=== PATIENT | female | born 1975 | race Caucasian/White ===

== ENCOUNTER 2020-04-23 08:34 | Emergency (ER) | payer OTHER, SELFPAY ==
--- NOTE | ~2020-04-23 | US_ITS ---
US right upper quadrant DATE: 04/23/2020 09:52 INDICATION: Right upper quadrant abdominal pain TECHNIQUE: Real-time imaging of liver, pancreas, gallbladder, Doppler evaluation. COMPARISON: None FINDINGS: No hepatic or pancreatic space-occupying mass lesion is evident. Normal hepatopedal portal venous flow direction. The common bile duct measures between 3.3 and 7.1 mm diameter. There is borderline thickening of the gallbladder. No gallstones are demonstrated, but the neck of th e gallbladder is not completely visualized due to interference from bowel gas. The technologist repor ts a negative sonographic Dolan's sign.. IMPRESSION: Borderline thickening of the gallbladder wall; incomplete visualization of the gallbladde r neck Consider radionuclide hepatobiliary scan if there is concern for acute cholecystitis Borderline or mildly increased diameter of the common bile duct, measuring up to 7.1 mm. Reviewed, dictated and finalized at [facility]. Reviewed, dictated and finalized at location [facility]. IMPRESSION: Borderline thickening of the gallbladder wall; incomplete visualiza tion of the gallbladder neck Consider radionuclide hepatobiliary scan if there is concern for acute cholecys titis Borderline or mildly increased diameter of the common bile duct, measuring up t o 7.1 mm.
--- NOTE | 2020-04-23 08:44 | ED.ABDPAIN ---
HPI - Abdominal Pain General Chief Complaint: Abdominal Pain Stated Complaint: abd pain Time Seen by Provider: 04/23/20 08:52 Source: patient Mode of arrival: ambulatory Limitations: no limitations History of Present Illness HPI narrative: 44-year-old woman with history of gallstones comes in today complaining of right upper quadrant pain that started 2 days ago. Patient got worse symptoms after eating. This morning she began to have vomiting. She states she had a small amount of blood in her stool yesterday. She states she also has urinary frequency and urgency and occasional incontinence. She denies seeing argenis blood in her urine, Black stools, bloody or black vomitus, skin color changes, fever, chills. MD elicited complaint: abdominal pain Pertinent past history: other (gallstones) Onset (ago): day(s) (2) Pain Consistency: constant Location: RUQ Severity: severe Quality: sharp Radiation: none Migration to: no migration Exacerbating factors: eating Relieving factors: nothing Context: confirms history of similar episodes Associated symptoms: nausea, vomiting and diarrhea Related Data Patient : No Home Medications Medication Instructions Recorded Confirmed gabapentin 300 mg PO TID 09/04/19 04/23/20 Allergies Allergy/AdvReac Type Severity Reaction Status Date / Time cyclobenzaprine Allergy Hives Verified 09/04/19 13:49 [From Flexeril] Review of Systems Constitutional: Constitutional: Denies chills, Denies fever(s) and Denies weakness Eyes: Eyes: Denies change in vision ENT: Denies dysphagia, Denies nasal congestion and Denies sore throat Cardiovascular: Cardiovascular: Denies chest pain and Denies radiating jaw, neck or arm pain Respiratory: Respiratory: Denies cough and Denies dyspnea Gastrointestinal: Gastrointestinal: Reports as per HPI Genitourinary: Genitourinary: Denies hematuria, Reports nocturia (and urgency), Denies dysuria and Reports urinary incontinence Musculoskeletal: Musculoskeletal: Denies arthralgias and Denies joint swelling Integumentary/Breasts: Skin/Breast: Denies pruritus, Denies erythema and Denies rash Neurologic: Denies vertigo, Denies dizziness, Denies syncope, Denies focal weakness and Denies numbness Hematologic/Lymphatic: Hematologic/Lymphatic: Denies easy bleeding and Denies easy bruising Allergic/Immunologic: Allergic/Immunologic: Denies lip swelling and Denies wheezing PMFSH Past Medical History Medical History Asthma Fibromyalgia Surgical History Surgical History H/O: hysterectomy Social History Social History Smoking status: Current every day smoker Alcohol intake: never Substance use: current Substance use type: marijuana Exam Const: General: healthy appearing and alert Orientation/consciousness: patient oriented x3 Limitations: no limitations Other: Moderate acute distress. HENMT: Head: normal to inspection Ears: external ears normal, TM's normal bilaterally and EAC's normal General nose exam: Normal nares present Face and sinus: normal facial exam Mouth: Yes moist mucous membranes Throat: posterior oropharynx normal and uvula midline Eyes: Conjunctivae: conjunctivae normal Pupils: Equal, round and reactive pupils present EOM: EOMs intact bilaterally Resp: Effort & Inspection: normal respiratory effort and not labored Auscultation: clear to auscultation bilaterally, no rales, no rhonchi and no wheezes Cardio: Rate: regular rate Rhythm: regular rhythm Heart sounds: no murmurs GI: GI Palp: Yes Soft to palpation, Yes Tenderness to palpation present (GI) (RUQ, No definite +Dolan's sign), No Guarding due to palpation present (GI), No Rigid due to palpation and No Palpable mass present Other: Liver edge palpable 3 cm below costal margin. Skin: Gene
[2020-04-23 08:45] VITALS: BP 128/89; PULSE 66; RESP 20; TEMP 36.8; O2SAT 97
--- NOTE | 2020-04-23 08:59 | ECG_ITS ---
Measurements Intervals [place] Rate: 59 P: 77 W[place]: 131 QRS: 72 QRSD: 106 T: 53 QT: 435 QTc: 432 Interpretive Statements SINUS BRADYCARDIA INCOMPLETE RIGHT BUNDLE BRANCH BLOCK BORDERLINE ECG Electronically Signed On 04-23-2020 11:10:38 CDT by James Borja D.O.
[2020-04-23] MEDS: SODIUM CHLORIDE 0.9% IV 1,000 ML 999 ML IV CONT (09:05)
[2020-04-23] MEDS: HYDROmorphone HCL 2 MG/ML VIAL 0.5 MG IV PUSH ×2 (09:05→11:09)
[2020-04-23] MEDS: ONDANSETRON INJ 4 MG/2 ML VIAL IV PUSH (09:06)
[2020-04-23 09:15] LABS: Basophils Absolute Auto 0.09 K/mm3 (0.00-0.10); Basophils Percent Auto 0.7 % (0.0-1.0); Eosinophils Absolute Auto 0.09 K/mm3 (0.02-0.50); Eosinophils Percent Auto 0.7 % (1.0-6.0); Hematocrit 37.3 % (35.0-49.0); Immature Granulocyte Absolute 0.04 K/mm3 (0.00-0.00); Immature Granulocyte Percent A 0.3 % (0.0-0.0); Lymphocytes Absolute Auto 2.75 K/mm3 (1.10-4.50); Lymphocytes Percent Auto 20.4 % (18.0-42.0); Mean Corpuscular HGB Conc 34.9 g/dL (32.0-36.0); Mean Corpuscular Hemoglobin 32.3 pg (27.0-31.0); Mean Corpuscular Volume 92.6 fL (78.0-102.0); Mean Platelet Volume 9.8 fl (9.2-11.8); Monocytes Absolute Auto 1.16 K/mm3 (0.10-0.90); Monocytes Percent Auto 8.6 % (2.0-11.0); Neutrophils Absolute Auto 9.3 K/mm3 (1.7-7.2); Neutrophils Percent Auto 69.3 % (50.0-70.0); Platelet Count Result 271 K/mm3 (150-420); Red Blood Count 4.03 M/mm3 (4.20-5.40); Red Cell Distribution Width 12.8 % (11.6-14.4); White Blood Count 13.5 K/mm3 (4.8-10.8)
[2020-04-23 09:29] LABS: Partial Thromboplastin Time 28.7 SEC (22.3-31.6); Prothrombin Time 10.5 Seconds (9.64-11.0)
[2020-04-23 09:31] LABS: Add Urine Microscopic? YES; Appearance Urine Clear (Clear); Bilirubin Urine Negative (Negative); Blood Urine Negative (Negative); Color Urine Yellow (Yellow); Glucose Urine UA Negative (Negative); Ketones Urine Negative (Negative); Leukocyte Esterase Ur Negative LEU/UL (Negative); Nitrate Urine Positive (Negative); Protein Urine Negative (Negative); Specific Grav Ur >= 1.030 (1.010-1.020); Urobilinogen Urine 0.2 mg/dL (0.2-1.0)
[2020-04-23 09:37] LABS: Bacteria Urine 4+ /hpf; RBC Urine 0-2 /hpf (0-2); Squamous Epithelial Cell Urine Few /hpf (Few); WBC Urine 0-3 /hpf (0-3)
[2020-04-23 09:49] LABS: Alanine Aminotransferase 16 U/L (14-59); Albumin Level 3.3 g/dL (3.4-5.0); Alkaline Phosphatase 75 U/L (46-116); Anion Gap 12.5 mmol/L (7-16); Aspartate Amino Transferase 15 U/L (15-37); Bilirubin,Total 0.2 mg/dL (0.00-1.00); Blood Urea Nitrogen 12 mg/dL (7-18); Calcium 8.1 mg/dL (8.5-10.1); Carbon Dioxide 27 mmol/L (21-32); Chloride 105 mmol/L (98-108); Estimated CRCL calculation 72 ml/min; Estimated Glomerular Filt Rate > 60; Glucose 97 mg/dL (70-99); Lipase 111 U/L (73-393); Osmolality Calculated 291 mOsm/kg (285-295); Potassium 3.5 mmol/L (3.5-5.1); Sodium 141 mmol/L (136-145); Total Protein 6.4 g/dL (6.4-8.2); Troponin I < 0.02 ng/mL (0.00-0.056)
--- NOTE | 2020-04-23 09:49 | PC.NURSE ---
0965 PT TO XRAY FOR ULTRASOUND, 0950 RETURN TO ROOM.
--- NOTE | 2020-04-23 10:19 | PC.NURSE ---
call to [facility], spoke with Marilee, waiting for return call from surgery partition assembler.
--- NOTE | 2020-04-23 11:10 | PC.NURSE ---
call from dr wooten office, appt for sunday at 230 pm to arrive at 2 pm for paper work. information regarding appointment given to dr arora
--- NOTE | 2020-04-23 11:23 | PC.NURSE ---
pt updated on plan of care regarding medication and appointment. possible transfer if not responding to pain medication per dr arora. Report to SCOTT Antonio.
[2020-04-23 11:45] VITALS: BP 127/84; PULSE 56; RESP 16; O2SAT 99
== END 2020-04-23 11:49 | disposition home or self-care (01) ==
PROVIDERS: Emergency Provider Emergency Medicine; PCP Family Medicine
DX: K80.50 Calculus of bile duct without cholangitis or cholecystitis without obstruction (principal)
CPT/HCPCS: 36415; 76705; 80053; 81001; 83605; 83690; 84484; 85025; 85610; 85730; 87077; 87086; 87088; 87186; 93005; 96361; 96374; 96375; 96376; 99284; J1170; J2405; J7030

== ENCOUNTER 2020-04-24 12:48 | Emergency (ER) | payer OTHER, SELFPAY ==
--- NOTE | ~2020-04-24 | CT_ITS ---
EXAMINATION: CT abdomen pelvis w con EXAM DATE: 04/24/2020 14:55 INDICATION: Right upper quadrant pain, symptoms one year. TECHNIQUE: Spiral CT of the abdomen and pelvis was performed following intravenous injection of 100 m L Omnipaque 350. Axial, coronal and sagittal images were reviewed. The dose-length product (DLP) fo r this examination was 222.75 mGy-cm. The exposure was tailored according to patient size (auto mA e xposure control), and iterative reconstruction (ASIR) was used as additional dose reduction technique . There is no prior study for comparison. FINDINGS: The liver, spleen, adrenal glands and pancreas are unremarkable. Gallbladder is unremarkab le. No biliary obstruction. Portal and splenic veins are patent. Kidneys enhance symmetrically. T here is no hydronephrosis. 2 small left renal cysts. Small region of left renal cortical scarring fro m prior infection or infarction. The uterus is not identified and has likely been surgically resecte d. Small amount of free pelvic fluid. The bladder is unremarkable. There is no retroperitoneal or p elvic lymphadenopathy. There is mild to moderate scattered arteriosclerotic disease. The appendix is not positively visualized. There is no pericecal inflammatory change to suggest appe ndicitis. The stomach and small bowel are unremarkable. There is moderate amount of colonic stool. No free intraperitoneal gas. The heart is normal in size. There are no pericardial or pleural e ffusions. The lung bases are unremarkable. The bones are unremarkable. IMPRESSION: 1. No acute intra-abdominal findings. 2. Small region left renal cortical scarring. 3. Small free pelvic fluid likely physiologic. Reviewed, dictated and finalized at location A.
[2020-04-24 13:27] VITALS: BP 135/87; PULSE 81; RESP 14; TEMP 37.1; O2SAT 98
--- NOTE | 2020-04-24 14:02 | ED.ABDPAIN ---
HPI - Abdominal Pain General Chief Complaint: Abdominal Pain Stated Complaint: lower RQ pain Source: patient Mode of arrival: ambulatory Limitations: no limitations History of Present Illness HPI narrative: This 44-year-old female with fibromyalgia presents stating I am tired of having this pain. I want to get my gallbladder out . She has has had problems with right upper quadrant pain off and on for over a year. For the last 3 days the pain has been severe and sharp. Eating food, or moving makes it worse. The pain is associated with nausea. She vomited once in the last 24 hours, and also had one diarrhea stool. It is non-radiating, not associated with fevers or chills. She was evaluated at [facility] yesterday morning. CBC showed a white count of 13.5, her liver function tests were all normal. Her ultrasound showed borderline thickening of the gallbladder wall; incomplete visualization of the gallbladder neck.Borderline or mildly increased diameter of the common bile duct, measuring up to 7.1 mm. Consider radionuclide hepatobiliary scan if there is concern for acute cholecystitis . Dr. Richey had accepted her for transfer to [facility] but she decided to go home, thinking she could endure the pain through the weekend and see Dr. Richey in the office on Sunday, 04/27. But the pain was not controlled at home with [place], bringing her back to the hospital. She demands transfer to [facility]. She states she has been seen multiple times at [facility] over this past year, has been passed around, with nobody taking her pain seriously. Urinalysis was positive yesterday for nitrate and 4+ bacteria, scant wbc's. She denies dysuria. Pt was not told she had a UTI. Related Data Home Medications Medication Instructions Recorded Confirmed gabapentin 300 mg PO TID 09/04/19 04/24/20 Allergies Allergy/AdvReac Type Severity Reaction Status Date / Time cyclobenzaprine Allergy Hives Verified 09/04/19 13:49 [From Flexeril] Review of Systems Constitutional: Constitutional: Denies fever(s) Cardiovascular: Cardiovascular: Denies chest pain Respiratory: Respiratory: Denies dyspnea Gastrointestinal: Gastrointestinal: Reports no additional gastrointestinal complaints Genitourinary: Genitourinary: Reports nocturia (chronic) and Denies dysuria Psychiatric: Psychiatric: Denies anxiety and Denies depression [facility] Past Medical History Medical History (Updated 04/25/20 @ 08:28 by Jose Cruz Griffin MD) Asthma Fibromyalgia Surgical History Surgical History H/O: hysterectomy Family History Family History Father Cerebrovascular accident Social History Social History Smoking status: Current every day smoker Alcohol intake: never Substance use: current Substance use type: marijuana Gender identity (if verbalized by the patient): Female Exam Const: Orientation/consciousness: patient oriented x3 Other: Anxious, frustrated I am asking her the same questions asked yesterday when nothing has changed. Course Course Emergency Course: When obtaining the history the patient became very annoyed with me stating, to paraphrase, nothing has changed since yesterday, just look at the chart. At times she became agitated stating I didn't care about her. She told me repeatedly I had no idea what she was going through. When patient was told her CT scan of the abdomen was negative for acute cholecystitis she became agitated and started yelling, pointing her finger repeatedly at me, saying I didn't know what it's like to be vomiting, sick for a year. I explained I know she's having pain. The lab tests do not show evidence of cholecystitis. No surgeon would take her gallbladder acutely based on the results of her CT scan. She refused a g.i. cocktail. Pt states she has had th
[2020-04-24] MEDS: HYDROmorphone HCL 2 MG/ML VIAL IV PUSH (14:13)
[2020-04-24] MEDS: ONDANSETRON INJ 4 MG/2 ML VIAL IV PUSH (14:13)
[2020-04-24] MEDS: LACTATED RINGERS 1,000 ML 500 ML IV CONT (14:13)
[2020-04-24 14:15] LABS: Basophils Absolute Auto 0.07 K/mm3 (0.00-0.10); Basophils Percent Auto 0.6 % (0.0-1.0); Eosinophils Absolute Auto 0.14 K/mm3 (0.02-0.50); Eosinophils Percent Auto 1.1 % (1.0-6.0); Hematocrit 36.4 % (35.0-49.0); Hemoglobin 12.7 g/dL (12.0-15.0); Immature Granulocyte Absolute 0.07 K/mm3 (0.00-0.00); Immature Granulocyte Percent A 0.6 % (0.0-0.0); Lymphocytes Absolute Auto 1.92 K/mm3 (1.10-4.50); Lymphocytes Percent Auto 15.5 % (18.0-42.0); Mean Corpuscular HGB Conc 34.9 g/dL (32.0-36.0); Mean Corpuscular Hemoglobin 32.7 pg (27.0-31.0); Mean Corpuscular Volume 93.8 fL (78.0-102.0); Mean Platelet Volume 9.5 fl (9.2-11.8); Monocytes Absolute Auto 1.18 K/mm3 (0.10-0.90); Monocytes Percent Auto 9.5 % (2.0-11.0); Neutrophils Percent Auto 72.7 % (50.0-70.0); Platelet Count Result 241 K/mm3 (150-420); Red Blood Count 3.88 M/mm3 (4.20-5.40); White Blood Count 12.4 K/mm3 (4.8-10.8)
[2020-04-24 14:16] VITALS: BP 118/77; PULSE 60; RESP 14; O2SAT 98
[2020-04-24 14:31] LABS: Alanine Aminotransferase 15 U/L (14-59); Albumin Level 3.1 g/dL (3.4-5.0); Alkaline Phosphatase 75 U/L (46-116); Anion Gap 6 mmol/L (8-16); Aspartate Amino Transferase 14 U/L (15-37); Bilirubin,Total 0.3 mg/dL (0.00-1.00); Blood Urea Nitrogen 9 mg/dL (7-18); Calcium 7.9 mg/dL (8.5-10.1); Carbon Dioxide 28 mmol/L (21-32); Chloride 105 mmol/L (98-108); Estimated CRCL calculation 89 ml/min; Estimated Glomerular Filt Rate > 60; Glucose 97 mg/dL (70-99); Osmolality Calculated 286 mOsm/kg (285-295); Potassium 3.9 mmol/L (3.5-5.1); Sodium 139 mmol/L (136-145)
[2020-04-24 14:37] LABS: Lactic Acid 1.3 mmol/L (0.4-2.0)
[2020-04-24 15:03] LABS: Lipase 66 U/L (73-393)
[2020-04-24 15:51] VITALS: BP 142/98; PULSE 93; RESP 20; O2SAT 97
--- NOTE | 2020-04-24 15:52 | PC.NURSE ---
ERP informed patient of results, patient yelling in the ER demanding her gallbladder be taken out today. ERP discussing with patient, she will be discharged and already has a f/u appointment on Sunday with Dr Richey. IV removed. VSS.
[2020-04-24] MEDS: PANTOPRAZOLE 40 MG TABLET PO (16:05)
== END 2020-04-24 16:08 | disposition home or self-care (01) ==
PROVIDERS: Emergency Provider Family Medicine; PCP Family Medicine
DX: N39.0 Urinary tract infection, site not specified (principal); R10.11 Right upper quadrant pain
CPT/HCPCS: 36415; 74177; 80053; 83605; 83690; 85025; 96361; 96374; 96375; 99281; 99284; A9270; J1170; J2405; J7120; Q9965

== ENCOUNTER 2020-04-30 10:45 | Outpatient (CLI) | payer OTHER, SELFPAY ==
--- NOTE | ~2020-04-30 | NM_ITS ---
EXAMINATION: NM hepatobiliary w pharm DATE: 04/30/2020 12:54 INDICATION: Chronic cholecystitis. COMPARISON: CT abdomen and pelvis 04/24/2020 TECHNIQUE: 4.9 mCi Tc-99m mebrofenin (Choletec) was administered intravenously. Scintigraphic images of the abdomen were obtained for one hour. Then, 1.2 mcg sincalide (Kinevac) IV was administered, an d imaging was continued for 30 minutes. FINDINGS: There is normal clearance of radiotracer from the blood pool. There is homogeneous tracer u ptake by the liver. Activity progresses to the bowel and gallbladder. Gallbladder ejection fraction (GBEF) was 91%. Note that most patients with gallbladder dysfunction have GBEF < 35%, which overlaps with the broad normal range of 10-90%. IMPRESSION: 1. Normal hepatobiliary scintigraphy. Reviewed, dictated and finalized at location [facility].
== END 2020-04-30 10:46 | disposition home or self-care (01) ==
LOC: CHSIMG 10:47
PROVIDERS: PCP Family Medicine; Visit Provider Surgery
DX: K81.1 Chronic cholecystitis (principal)
CPT/HCPCS: 78227; A9537; J2805

== ENCOUNTER 2020-05-01 01:50 | Outpatient (CLI) | payer OTHER, SELFPAY ==
[2020-05-01 18:01] LABS: SARS-CoV-2 RNA PCR Negative
== END 2020-05-01 01:51 | disposition home or self-care (01) ==
LOC: ANHCOVIDDT 01:50
PROVIDERS: PCP Family Medicine; Visit Provider Surgery
DX: Z01.812 Encounter for preprocedural laboratory examination (principal); Z20.828 Contact with and (suspected) exposure to other viral communicable diseases
CPT/HCPCS: 36415; 80076; 82150; 83690; 86850; 86900; 86901; 87635; C9803; U0003

== ENCOUNTER 2020-05-01 08:23 | Outpatient (CLI) | payer OTHER, SELFPAY ==
[2020-05-01 09:02] LABS: Alanine Aminotransferase 15 U/L (4-35); Albumin Level 4.4 g/dL (3.5-5.1); Alkaline Phosphatase 74 U/L (38-126); Amylase 98 U/L (30-110); Aspartate Amino Transferase 22 U/L (14-36); Bilirubin,Total 0.2 mg/dL (0.2-1.3); Lipase 53 U/L (23-300)
== END 2020-05-01 08:24 | disposition home or self-care (01) ==
PROVIDERS: PCP Family Medicine; Visit Provider Surgery
DX: K81.1 Chronic cholecystitis (principal)
CPT/HCPCS: 36415; 80076; 82150; 83690; 86850; 86900; 86901

== ENCOUNTER 2020-05-04 04:12 | Day surgery (SDC) | payer OTHER, SELFPAY ==
[2020-04-27 10:53] VITALS: BMI 21.1
[2020-05-04] VITALS (10 sets, daily range): BP systolic 103–127; BP diastolic 75–91; PULSE 50–80; RESP 14–23; TEMP 36.8–36.9; O2SAT 94–100
[2020-05-04] MEDS: ACETAMINOPHEN 500 MG TABLET 1000 MG PO (06:57)
[2020-05-04] MEDS: LACTATED RINGERS 1,000 ML 30 ML IV CONT ×2 (07:10→10:06)
--- NOTE | 2020-05-04 07:11 | WPDANESEPPF ---
Anes - Initial Pre Proc Eval Procedure: Operation Date: 05/04/20 08:30 Proposed Procedures p Laparoscopic Cholecystectomy - Waldemar Richey MD Date/Time: 05/04/20 07:11 Surgeon: Waldemar Richey MD Pre Op Diagnosis: Acalculous Cholecystitis Patient Data Age: 44 Gender: F Height: 5 ft 7 in Weight: 61.24 kg Allergies Allergy/AdvReac Type Severity Reaction Status Date / Time cyclobenzaprine Allergy Hives Verified 04/27/20 10:53 [From Flexeril] Home Medications Medication Instructions Recorded Confirmed Type gabapentin 300 mg PO TID 09/04/19 04/27/20 History ondansetron 4 mg PO Q6H PRN #20 tablet 04/23/20 04/27/20 Rx pantoprazole 40 mg PO QAM 28 Days #28 tablet 04/24/20 04/27/20 Rx sulfamethoxazole-trimethoprim 1 tablet PO Q12H #6 tablet 04/24/20 04/27/20 Rx [Bactrim DS] albuterol sulfate 2 puff INHALATION Q4-6H PRN 04/27/20 04/27/20 History multivitamin 1 tablet PO DAILY 04/27/20 04/27/20 History Patient hx anesthesia problems: other (motion sickness) Family hx anesthesia problems: none PMFSH Past Medical History Medical History Asthma COPD (chronic obstructive pulmonary disease) Fibromyalgia Smoker Surgical History Surgical History H/O: hysterectomy Family History Family History Father Cerebrovascular accident Social History Social History Smoking packs per day: 0.75 Smoking cigarettes per day: 15.0 Years smoked: 20 Smoking pack-years: 15.00 Smoking status: Current every day smoker Tobacco type: cigarettes Alcohol intake: never Substance use: current Substance use type: marijuana Last use: 04/26/20 Gender identity (if verbalized by the patient): Female Spiritual care concerns: No Anes - Eval Final PreProcedure Day of Procedure 05/04/20 07:11 Patient weight: normal Heart: regular rate and rhythm Lungs: decreased breath sounds Airway: Mallampati scale class II Neurological: alert and oriented Last oral intake: >/= 8 hours ASA classification: III Emergent: no Anesthetic plan: proceed Anesthesia type and monitoring: general ETT and standard monitoring Informed Consent: The patient's anesthetic plan and its attendant risks and benefits were discussed with the patient/family/POA. Questions were solicited and answers provided to the satisfaction of the patient/family/POA.
[2020-05-04] MEDS: KETOROLAC 15 MG/ML VIAL (*BKC) IV PUSH (07:13)
[2020-05-04] MEDS: SCOPOLAMINE 1.5 MG PATCH TRANSDERM (07:18)
--- NOTE | 2020-05-04 08:49 | WPDHPUPDATE1 ---
History and Physical Update Update Date/Time: 05/04/20 08:49 History and Physical has been reviewed, including an updated exam of the patient. There are NO changes in the patient's condition. Risks, benefits, and alternatives have been discussed and questions answered. Patient agrees to proceed with procedure.
[2020-05-04] MEDS: ceFAZolin 2 GM/D5W 50 ML 2 GM/50 ML BAG IVPB (09:03)
--- NOTE | 2020-05-04 09:12 | SUR.PREOP ---
0805-PT AWARE SURGEON DELAYED ~30 MINUTE WITH MEETING.
[2020-05-04] MEDS: BUPIVACAINE/EPINEPHRINE 0.5% 30 ML VIAL INFILTRATE (09:41)
--- NOTE | 2020-05-04 10:23 | PM.PROC ---
Procedure Note - Detailed Date of procedure: 05/04/20 Pre-op diagnosis: Acalculous Cholecystitis Chronic cholecystitis Post-op diagnosis: same Procedure performed: Laparoscopic cholecystectomy Description of procedure: The patient was taken to surgery and induced into general anesthesia. The abdomen was prepped and draped. Trocars were placed in the usual fashion using 0.5% Marcaine with epinephrine and applied Medical optical trocars. A 5 millimeter camera was used. During the initial placement of the epigastric optical trocar, the lateral segment of the left lobe of the liver was injured. This was due to the patient being extremely thin with a small frame. The injury was minor. There was some blood in the right upper quadrant. This was suctioned away. The liver injury was cauterized and was hemostatic. It did not pose any further problems during the surgery. The gallbladder was retracted anterosuperiorly. Adhesions to the gallbladder were taken down so that the cholecystohepatic triangle was exposed. Traction was placed on the infundibulum. The cystic duct and cystic artery were dissected out very clearly. The gallbladder was dissected off the liver at its lower 3rd. Critical view was achieved. We securely clipped and divided the cystic duct and cystic artery. The gallbladder was then further retracted so that the peritoneal attachments to the liver could be divided. Once the gallbladder was freed entirely, it was placed in an Endo-Catch bag and retrieved through the 10 11 epigastric trocar site. The epigastric trocar was then replaced. We reviewed the right upper quadrant. It was irrigated and suctioned. All looked good with no evidence of bleeding or bile leakage. The trocar injury to the lateral segment of the left lobe of the liver was rechecked and it was quite dry and satisfactory as well. We evacuated CO2 and removed the trocar sleeves. The fascia at the epigastric trocar site was closed with 0 Vicryl suture. Skin wounds were closed with subcuticular 4 O Monocryl skin suture. The wounds were dressed with Exofin surgical adhesive. Patient was awakened and taken to recovery in good condition. Sponge and needle counts were correct x2. Anesthesia: GETA and local (0.5% Marcaine with epinephrine) Surgeon: Waldemar Richey MD Application Penetration Tester: Alverto RING Estimated blood loss (mL): 20 Drains: No Packing: No Pathology: yes (Gallbladder) Complications: None Condition: stable Disposition: PACU Findings: Chronic inflammation, no gallstones noted. No biliary ductal dilatation, no liver abnormalities.
--- NOTE | 2020-05-04 11:54 | SUR.PHASEII ---
1152 - dr. wooten in room talking with pt.
== END 2020-05-04 12:17 | disposition home or self-care (01) ==
PROVIDERS: PCP Family Medicine; Visit Provider Surgery
PROC: 0FT44ZZ Resection of Gallbladder, Percutaneous Endoscopic Approach (ICD-10-PCS; CPT 47562; principal; 2020-05-04 08:30)
DX: K81.1 Chronic cholecystitis (principal); J44.9 Chronic obstructive pulmonary disease, unspecified; M79.7 Fibromyalgia; F17.210 Nicotine dependence, cigarettes, uncomplicated; F12.90 Cannabis use, unspecified, uncomplicated
CPT/HCPCS: 47562; 88304; A9270; C1713; J0690; J1100; J1885; J2250; J2590; J3010; J7030; J7120

== ENCOUNTER 2020-05-05 10:28 | Emergency (ER) | payer OTHER, SELFPAY ==
--- NOTE | ~2020-05-05 | CT_ITS ---
EXAMINATION: CT abdomen pelvis w con INDICATION: Abdominal pain status post cholecystectomy TECHNIQUE: Computed tomographic images of the abdomen and pelvis were obtained after the administrati on of 100 cc of Omnipaque 350 intravenous contrast. The dose-length product (DLP) was 239.22 mGy-cm. Automated exposure control and iterative reconstruction technique were employed. COMPARISON: 04/24/2020 FINDINGS: The lung bases are clear. The heart size is normal. There is free intraperitoneal gas in th e upper abdomen and abdominal wall, consistent with recent cholecystectomy. The gallbladder is surgic ally absent. The common bile duct is dilated measuring up to 10 mm. The liver, spleen, pancreas, and adrenal glands are normal. Cysts of the kidneys measure up to 10 mm on the left. A large volume of co lonic stool is present. IMPRESSION: 1. Free intraperitoneal and abdominal wall gas, consistent with recent cholecystectomy. 2. Dilated common bile duct of unclear etiology, no definite stone identified. 3. Constipation. Reviewed, dictated and finalized at location A. IMPRESSION: 1. Free intraperitoneal and abdominal wall gas, consistent with recent cholecys tectomy. 2. Dilated common bile duct of unclear etiology, no definite stone identified. 3. Constipation.
[2020-05-05 10:45] VITALS: BP 135/66; PULSE 64; RESP 20; TEMP 36.7; O2SAT 99
--- NOTE | 2020-05-05 10:56 | PC.NURSE ---
dr españa in with pt.
--- NOTE | 2020-05-05 11:19 | ED.ABDPAIN ---
HPI - Abdominal Pain General Chief Complaint: Abdominal Pain Stated Complaint: Gallbladder surgery yesterday and in a lot of pain Source: patient Mode of arrival: ambulatory History of Present Illness HPI narrative: Yamileth is a 44 F with a PMH of asthma that presented to the ED with diffuse abdominal pain. She had a laparoscopic cholecystectomy done yesterday. She woke up at 0300 this AM with diffuse abdominal pain. She took 2x5/325 [place] which did not provide relief. She called her surgeon that recommended she go to the ED. She reports passing gas and she has had a small BM. No N/V/D or heartburn. No CP, SOB, cough, dysuria or back pain. Related Data Home Medications Medication Instructions Recorded Confirmed gabapentin 300 mg PO TID 09/04/19 05/05/20 albuterol sulfate 2 puff INHALATION Q4-6H PRN 04/27/20 05/05/20 Allergies Allergy/AdvReac Type Severity Reaction Status Date / Time cyclobenzaprine Allergy Hives Verified 05/04/20 07:46 [From Flexeril] Review of Systems Constitutional: Constitutional: Denies chills and Denies fever(s) Eyes: Eyes: Reports no additional eye complaints ENT: Reports system reviewed and no additional complaints, except as documented Cardiovascular: Cardiovascular: Reports no additional cardiovascular complaints Respiratory: Respiratory: Reports no additional respiratory complaints Gastrointestinal: Gastrointestinal: Reports no additional gastrointestinal complaints Genitourinary: Genitourinary: Reports no additional female genitourinary complaints Musculoskeletal: Musculoskeletal: Reports no additional musculoskeletal complaints Integumentary/Breasts: Skin/Breast: Reports system reviewed and no additional complaints, except as docu Neurologic: Reports system reviewed and no additional complaints, except as documented Psychiatric: Psychiatric: Reports no additional psychiatric complaints Endocrine: Endocrine: Reports no additional endocrine complaints Hematologic/Lymphatic: Hematologic/Lymphatic: Reports no additional hematologic/lymphatic complaints Allergic/Immunologic: Allergic/Immunologic: Reports no additional allergic/immunologic complaints [facility] Past Medical History Medical History Asthma COPD (chronic obstructive pulmonary disease) Fibromyalgia Smoker Surgical History Surgical History H/O: hysterectomy Family History Family History Father Cerebrovascular accident Social History Social History Smoking packs per day: 0.75 Smoking cigarettes per day: 15.0 Years smoked: 20 Smoking pack-years: 15.00 Smoking status: Current every day smoker Tobacco type: cigarettes Alcohol intake: never Substance use: current Substance use type: marijuana Last use: 04/26/20 Gender identity (if verbalized by the patient): Female Spiritual care concerns: No Exam Const: General: no acute distress Orientation/consciousness: patient oriented x3 Limitations: No altered mental status Other: No acute distress HENMT: Head: normal to inspection Eyes: Conjunctivae: conjunctivae normal Pupils: Equal, round and reactive pupils present Neck: Neck: normal visual inspection Chest: Chest palpation & inspection: normal inspection of the chest Resp: Effort & Inspection: normal respiratory effort Auscultation: clear to auscultation bilaterally Cardio: Rate: regular rate Rhythm: regular rhythm Heart sounds: no murmurs GI: GI Palp: Yes Soft to palpation Other: Diffuse TTP with the RUQ being most tender. +rebound tenderness. Incision is clean, dry, and intact. Bowel sounds present but decreased. : General: Yes no CVA tenderness Other: Minimal suprapubic tenderness. Back/Spine/Pelvis: Back: no CVA tenderness Skin: General skin exam: normal color Rashes: no rashes Neuro: Gen
[2020-05-05 11:20] LABS: Basophils Absolute Auto 0.06 K/mm3 (0.00-0.10); Basophils Percent Auto 0.4 % (0.0-1.0); Eosinophils Absolute Auto 0.03 K/mm3 (0.02-0.50); Eosinophils Percent Auto 0.2 % (1.0-6.0); Hematocrit 40.2 % (35.0-49.0); Hemoglobin 13.7 g/dL (12.0-15.0); Immature Granulocyte Absolute 0.06 K/mm3 (0.00-0.00); Immature Granulocyte Percent A 0.4 % (0.0-0.0); Lymphocytes Absolute Auto 2.09 K/mm3 (1.10-4.50); Lymphocytes Percent Auto 14.7 % (18.0-42.0); Mean Corpuscular HGB Conc 34.1 g/dL (32.0-36.0); Mean Corpuscular Hemoglobin 32.5 pg (27.0-31.0); Mean Corpuscular Volume 95.3 fL (78.0-102.0); Mean Platelet Volume 9.8 fl (9.2-11.8); Monocytes Absolute Auto 1.34 K/mm3 (0.10-0.90); Monocytes Percent Auto 9.4 % (2.0-11.0); Neutrophils Absolute Auto 10.6 K/mm3 (1.7-7.2); Neutrophils Percent Auto 74.9 % (50.0-70.0); Platelet Count Result 239 K/mm3 (150-420); Red Blood Count 4.22 M/mm3 (4.20-5.40); Red Cell Distribution Width 13.2 % (11.6-14.4); White Blood Count 14.2 K/mm3 (4.8-10.8)
[2020-05-05 11:31] LABS: Prothrombin Time 10.4 Seconds (9.64-11.0)
[2020-05-05 11:33] LABS: Alanine Aminotransferase 44 U/L (14-59); Albumin Level 3.6 g/dL (3.4-5.0); Alkaline Phosphatase 76 U/L (46-116); Anion Gap 10 mmol/L (8-16); Aspartate Amino Transferase 33 U/L (15-37); Bilirubin,Total 0.4 mg/dL (0.00-1.00); Blood Urea Nitrogen 9 mg/dL (7-18); Calcium 8.4 mg/dL (8.5-10.1); Carbon Dioxide 26 mmol/L (21-32); Chloride 103 mmol/L (98-108); Estimated CRCL calculation 70 ml/min; Estimated Glomerular Filt Rate > 60; Glucose 101 mg/dL (70-99); Osmolality Calculated 286 mOsm/kg (285-295); Potassium 3.5 mmol/L (3.5-5.1); Sodium 139 mmol/L (136-145); Total Protein 7.4 g/dL (6.4-8.2)
[2020-05-05 11:34] LABS: Add Urine Microscopic? NO; Appearance Urine Clear (Clear); Bilirubin Urine Negative (Negative); Blood Urine Negative (Negative); Color Urine Yellow (Yellow); Glucose Urine UA Negative (Negative); Ketones Urine Negative (Negative); Leukocyte Esterase Ur Negative (Negative); Nitrate Urine Negative (Negative); Protein Urine Negative (Negative); Specific Grav Ur 1.025 (1.010-1.020); Urobilinogen Urine 0.2 mg/dL (0.2-1.0)
[2020-05-05 11:38] LABS: Lactic Acid 1.6 mmol/L (0.4-2.0)
[2020-05-05] MEDS: MORPHINE SULFATE 4 MG/ML INJ IV PUSH (11:40)
[2020-05-05] MEDS: SODIUM CHLORIDE 0.9% IV 1,000 ML 999 ML IV CONT (11:40)
[2020-05-05] MEDS: MORPHINE SULFATE 2 MG/ML INJ IV PUSH (13:03)
[2020-05-05 13:55] VITALS: BP 122/84; PULSE 64; RESP 15; O2SAT 99
== END 2020-05-05 13:54 | disposition home or self-care (01) ==
PROVIDERS: Emergency Provider Family Medicine; PCP Family Medicine
DX: R10.9 Unspecified abdominal pain (principal)
CPT/HCPCS: 36415; 74177; 80053; 81003; 83605; 85025; 85610; 87040; 96361; 96374; 96376; 99283; 99284; J2270; J7030; Q9965

== ENCOUNTER 2020-10-24 14:11 | Emergency (ER) | payer OTHER, SELFPAY ==
--- NOTE | ~2020-10-24 | XR_ITS ---
XR elbow LT min 3V 10/24/2020 14:50 INDICATION: Left elbow pain after fall PROCEDURE: 4 views left elbow COMPARISON: No prior studies for comparison. FINDINGS: Fracture, dislocation or subluxation is not identified. The soft tissues appear within norm al limits. No foreign bodies are identified. IMPRESSION: 1: NO ACUTE BONE OR JOINT ABNORMALITY IDENTIFIED. Reviewed, dictated and finalized at location A. DWORK COORDINATOR
--- NOTE | ~2020-10-24 | XR_ITS ---
XR wrist LT min 3V 10/24/2020 14:50 INDICATION: Left wrist pain PROCEDURE: 4 views left wrist COMPARISON: No prior studies for comparison. FINDINGS: Fracture, dislocation or subluxation is not identified. The soft tissues appear within norm al limits. No foreign bodies are identified. IMPRESSION: 1: NO ACUTE BONE OR JOINT ABNORMALITY IDENTIFIED. Reviewed, dictated and finalized at location A. FITI CLEANER
[2020-10-24 14:24] VITALS: BP 138/91; PULSE 90; RESP 20; TEMP 36.7; O2SAT 100
--- NOTE | 2020-10-24 14:28 | ED.UPPEXIN ---
HPI - Extremity Injury (Upper) General Source: patient Mode of arrival: ambulatory Limitations: no limitations History of Present Illness HPI narrative: 44-year-old woman comes in today complaining left wrist and elbow pain that started last night after her dogs washed her to fall backwards on her outstretched hand. She has had pain since. She denies any numbness or tingling. She denies prior upper extremity fractures. She denies any other injuries. complaint: injury to: left, elbow and wrist Onset (ago): day(s) (1) Other Extremity Injury: Left: wrist and elbow Other injuries: none Place: home Severity: moderate Relieving factors: rest Exacerbating factors: movement of extremity Context: fall Associated symptoms: denies other symptoms Treatments prior to arrival: cold therapy and NSAIDS Related Data Home Medications Medication Instructions Recorded Confirmed gabapentin 300 mg PO QID 09/04/19 10/24/20 albuterol sulfate 2 puff INHALATION Q4-6H PRN 04/27/20 10/24/20 Allergies Allergy/AdvReac Type Severity Reaction Status Date / Time cyclobenzaprine Allergy Hives Verified 05/04/20 07:46 [From Flexeril] Review of Systems Respiratory: Respiratory: Denies chest congestion and Denies cough Gastrointestinal: Gastrointestinal: Denies nausea and Denies vomiting Musculoskeletal: Musculoskeletal: Reports as per HPI, Reports myalgias ( Chronic), Reports arthralgias and Reports joint swelling Integumentary/Breasts: Skin/Breast: Denies erythema, Denies rash and Denies wounds Neurologic: Denies vertigo, Denies dizziness, Denies syncope, Denies focal weakness and Denies numbness Hematologic/Lymphatic: Hematologic/Lymphatic: Denies easy bleeding and Denies easy bruising PMFSH Past Medical History Medical History Asthma COPD (chronic obstructive pulmonary disease) Fibromyalgia Smoker Surgical History Surgical History (Updated 10/24/20 @ 14:31 by Jose Curz Shearer MD) H/O: hysterectomy S/P cholecystectomy Family History Family History Father Cerebrovascular accident Social History Social History Smoking packs per day: 0.75 Smoking cigarettes per day: 15.0 Years smoked: 20 Smoking pack-years: 15.00 Smoking status: Current every day smoker Tobacco type: cigarettes Alcohol intake: never Substance use: current Substance use type: marijuana Last use: 04/26/20 Gender identity (if verbalized by the patient): Female Spiritual care concerns: No Exam Const: General: cooperative, alert, awake, Physically active and acute distress moderate Nutritional Appearance: thin Orientation/consciousness: patient oriented x3 HENMT: Head: normal to inspection Eyes: Pupils: Equal, round and reactive pupils present EOM: EOM abnormal Resp: Effort & Inspection: normal respiratory effort, able to speak in complete sentences and not labored Auscultation: clear to auscultation bilaterally, no rales, no rhonchi and no wheezes Cardio: Rate: regular rate Rhythm: regular rhythm Heart sounds: no murmurs Skin: General skin exam: normal color and no rashes or lesions noted Neuro: General: tone normal and moves all extremities Cognition (Neuro): normal cognition Speech: normal speech Gait exam (Neuro): Normal gait present Motor exam (neuro): 5/5 motor strength present throughout Sensory Exam: normal sensation Extrem: General: normal to inspection, capillary refill normal and normal exam except as noted Other: Ms. tenderness palpation of the 1st metacarpal, the radius ulna distally, the proximal radius, and the olecranon. No swelling , erythema or abrasions are present. Patient has limited range of motion due to pain. Psych: Appearance: grossly normal and well kempt Mental Status: mental status grossly normal Speech and movement: Normal speech and movement present Affect: jefferson
[2020-10-24] MEDS: IBUPROFEN 600 MG TABLET PO (14:37)
[2020-10-24] MEDS: traMADol HCL (*CRX) 50 MG TABLET PO (15:19)
[2020-10-24 15:27] VITALS: BP 121/88; PULSE 62; RESP 20; TEMP 36.7; O2SAT 100
== END 2020-10-24 15:28 | disposition home or self-care (01) ==
PROVIDERS: Emergency Provider Emergency Medicine; PCP Family Medicine
DX: S63.502A Unspecified sprain of left wrist, initial encounter (principal); S53.402A Unspecified sprain of left elbow, initial encounter; W19.XXXA Unspecified fall, initial encounter
CPT/HCPCS: 29125; 73080; 73110; 99283; 99284; A4565; A9270

== ENCOUNTER 2021-05-29 14:58 | Emergency (ER) | payer OTHER, SELFPAY ==
--- NOTE | ~2021-05-29 | CT_ITS ---
EXAMINATION: CT abdomen pelvis w con DATE: 05/29/2021 16:59 INDICATION: Chronic lower abdominal pain. TECHNIQUE: Computed tomography (CT) of the abdomen and pelvis was performed with 100 cc Omnipaque 350 intravenous contrast. The dose-length product was 209.39 mGy-cm. Automated exposure control and iter ative reconstruction technique were employed. COMPARISON: CT dated 05/05/2020 FINDINGS: Heart size is normal. No significant pleural or pericardial effusion. Status post cholecyst ectomy. No significant vascular abnormality. No lymphadenopathy. Status post cholecystectomy. The liver, spleen, pancreas, adrenal glands and right kidney are unremarkable. There is a left renal cyst. There is mild bladder wall thickening with subtle infiltration of the perivesical fat anteriorl y. Consider cystitis in the appropriate clinical setting. There is a small involuting corpus luteal c yst of the left ovary. No significant bone or joint abnormality. IMPRESSION: 1. Mild bladder wall thickening with subtle infiltration of the perivesical fat anteriorly. Consider cystitis in the appropriate clinical setting. Reviewed, dictated and finalized at location A.
[2021-05-29 15:38] VITALS: BP 134/100; PULSE 77; RESP 16; TEMP 36.6; O2SAT 99
[2021-05-29] MEDS: SODIUM CHLORIDE 0.9% IV 500 ML 999 ML IV CONT (15:50)
[2021-05-29] MEDS: PANTOPRAZOLE SODIUM IV 40 MG VIAL IV PUSH (15:50)
[2021-05-29] MEDS: ONDANSETRON INJ 4 MG/2 ML VIAL IV PUSH (15:50)
[2021-05-29] MEDS: KETOROLAC (*BKC) 60 MG/2 ML VIAL IM (15:57)
[2021-05-29 16:23] LABS: Basophils Absolute Auto 0.09 K/mm3 (0.00-0.10); Eosinophils Absolute Auto 0.11 K/mm3 (0.02-0.50); Eosinophils Percent Auto 1.3 % (1.0-6.0); Hemoglobin 12.7 g/dL (12.0-15.0); Immature Granulocyte Absolute 0.04 K/mm3 (0.00-0.00); Immature Granulocyte Percent A 0.5 % (0.0-0.0); Lymphocytes Absolute Auto 2.05 K/mm3 (1.10-4.50); Lymphocytes Percent Auto 23.6 % (18.0-42.0); Mean Corpuscular HGB Conc 34.3 g/dL (32.0-36.0); Mean Corpuscular Hemoglobin 32.3 pg (27.0-31.0); Mean Corpuscular Volume 94.1 fL (78.0-102.0); Mean Platelet Volume 9.4 fl (9.2-11.8); Monocytes Absolute Auto 0.94 K/mm3 (0.10-0.90); Monocytes Percent Auto 10.8 % (2.0-11.0); Neutrophils Absolute Auto 5.5 K/mm3 (1.7-7.2); Neutrophils Percent Auto 62.8 % (50.0-70.0); Platelet Count Result 292 K/mm3 (150-420); Red Blood Count 3.93 M/mm3 (4.20-5.40); Red Cell Distribution Width 12.4 % (11.6-14.4); White Blood Count 8.7 K/mm3 (4.8-10.8)
[2021-05-29 16:25] LABS: Add Urine Microscopic? YES; Appearance Urine Clear (Clear); Bilirubin Urine Negative (Negative); Blood Urine Negative (Negative); Color Urine Yellow (Yellow); Glucose Urine UA Negative (Negative); Ketones Urine Negative (Negative); Leukocyte Esterase Ur Negative (Negative); Nitrate Urine Negative (Negative); Protein Urine Trace (Negative); Specific Grav Ur >= 1.030 (1.010-1.020); Urobilinogen Urine 0.2 mg/dL (0.2-1.0)
[2021-05-29 16:31] LABS: Bacteria Urine 1+ /hpf; Mucus Urine Few /lpf; RBC Urine 0-2 /hpf (0-2); Squamous Epithelial Cell Urine Few /hpf (Few); WBC Urine 0-3 /hpf (0-3)
[2021-05-29 16:39] LABS: Alanine Aminotransferase 21 U/L (14-59); Albumin Level 3.4 g/dL (3.4-5.0); Alkaline Phosphatase 89 U/L (46-116); Anion Gap 8 mmol/L (8-16); Aspartate Amino Transferase 10 U/L (15-37); Bilirubin,Total 0.1 mg/dL (0.00-1.00); Blood Urea Nitrogen 9 mg/dL (7-18); Calcium 7.8 mg/dL (8.5-10.1); Carbon Dioxide 27 mmol/L (21-32); Chloride 108 mmol/L (98-108); Estimated CRCL calculation 91 ml/min; Estimated Glomerular Filt Rate > 60; Glucose 99 mg/dL (70-99); Lipase 101 U/L (73-393); Osmolality Calculated 294 mOsm/kg (285-295); Potassium 3.9 mmol/L (3.5-5.1); Sodium 143 mmol/L (136-145); Total Protein 6.3 g/dL (6.4-8.2)
[2021-05-29] MEDS: MORPHINE SULFATE (*CRX) 2 MG/ML INJ IV PUSH (17:05)
--- NOTE | 2021-05-29 17:40 | PC.NURSE ---
Pt requesting to go home, pt asking when she can leave because she is feeling better, edp aware.
--- NOTE | 2021-05-29 17:44 | ED.ABDPAIN ---
HPI - Abdominal Pain General Chief Complaint: Abdominal Pain Stated Complaint: severe stomach pains Time Seen by Provider: 05/29/21 14:59 Source: patient Mode of arrival: ambulatory Limitations: no limitations History of Present Illness MD elicited complaint: abdominal pain Onset (ago): hour(s) (6) Pain Consistency: colicky Location: RLQ and R flank Pain scale (0-10): 8 Quality: cramping, aching and dull Radiation: R flank Exacerbating factors: nothing Relieving factors: nothing Related Data Home Medications Medication Instructions Recorded Confirmed gabapentin 300 mg PO QID 09/04/19 05/29/21 albuterol sulfate 2 puff INHALATION Q4-6H PRN 04/27/20 05/29/21 Allergies Allergy/AdvReac Type Severity Reaction Status Date / Time cyclobenzaprine Allergy Hives Verified 05/04/20 07:46 [From Flexeril] Review of Systems Review of Systems: All systems reviewed & are unremarkable except as noted in HPI and below PMFSH Past Medical History Medical History Abdominal pain, chronic, bilateral lower quadrant Asthma COPD (chronic obstructive pulmonary disease) Fibromyalgia Smoker Surgical History Surgical History H/O: hysterectomy S/P cholecystectomy Family History Family History Father Cerebrovascular accident Social History Social History Smoking packs per day: 0.75 Smoking cigarettes per day: 15.0 Years smoked: 20 Smoking pack-years: 15.00 Smoking status: Current every day smoker Tobacco type: cigarettes Alcohol intake: never Substance use: current Substance use type: marijuana Last use: 04/26/20 Gender identity (if verbalized by the patient): Female Spiritual care concerns: No Exam Const: General: no acute distress and alert Orientation/consciousness: patient oriented x3 HENMT: Head: normal to inspection Ears: external ears normal and TM's normal bilaterally Mouth: Yes lip normal and Yes moist mucous membranes Teeth and gingiva: dentition normal Eyes: Conjunctivae: conjunctivae normal Pupils: Equal, round and reactive pupils present EOM: EOMs intact bilaterally Neck: Neck: normal visual inspection and no lymphadenopathy Chest: Chest palpation & inspection: normal inspection of the chest Resp: Effort & Inspection: normal respiratory effort Cardio: Rate: regular rate Rhythm: regular rhythm GI: GI Palp: Yes Soft to palpation and Yes Tenderness to palpation present (GI) (bilateral lower quadrant abdomen R > L) : General: Yes bladder normal to palpation and Yes no CVA tenderness Back/Spine/Pelvis: Back: no CVA tenderness Skin: General skin exam: normal color Rashes: no rashes Neuro: General: patient oriented x3, moves all extremities, no meningeal signs, no focal motor deficits and CN's II-XI intact bilaterally Extrem: General: normal to inspection and no pedal edema Psych: Appearance: grossly normal and well kempt Mental Status: mental status grossly normal Affect: normal affect Attitude: cooperative Thought content: Yes Normal thought content present Course Course Emergency Course: Pt was stable in the ED. less abdominal pain. Reevaluation(s) Reevaluation #1: less abdominal pain in the ED. Date: 05/29/21 Time: 16:30 Vital Signs Vital signs: Vital Signs Temperature 36.6 C 05/29/21 15:38 Pulse Rate 77 05/29/21 15:38 Respiratory Rate 16 05/29/21 15:38 Blood Pressure 134/100 H 05/29/21 15:38 Pulse Oximetry 99 05/29/21 15:38 Temperature 36.6 C 05/29/21 18:01 Pulse Rate 77 05/29/21 18:01 Respiratory Rate 16 05/29/21 18:01 Blood Pressure 139/89 05/29/21 18:01 Pulse Oximetry 98 05/29/21 18:01 MDM - Abdominal Pain Differential Diagnosis Differential diagnosis: Likely abdominal pain, acute appendicitis, calculus of kidney and small bowel obstr
[2021-05-29 18:01] VITALS: BP 139/89; PULSE 77; RESP 16; TEMP 36.6; O2SAT 98
--- NOTE | 2021-05-29 18:07 | PC.NURSE ---
pt tearful and yelling at this rn stating she needs a prescription for something for pain and that she cannot take tramadol because it hurts her stomach. pt reports the shot we administered her made her stomach her worse. edp aware.
== END 2021-05-29 18:14 | disposition home or self-care (01) ==
PROVIDERS: Emergency Provider Emergency Medicine; PCP Family Medicine
DX: N39.0 Urinary tract infection, site not specified (principal); R10.9 Unspecified abdominal pain
CPT/HCPCS: 36415; 74177; 80053; 81001; 83690; 85025; 96372; 96374; 96375; 99283; 99284; C9113; J1885; J2270; J2405; J7040; Q9967

== ENCOUNTER 2022-01-01 | Emergency (ER) | payer OTHER, SELFPAY ==
[2022-01-01 00:14] VITALS: BP 132/95; PULSE 83; RESP 18; TEMP 37.2; O2SAT 98
--- NOTE | 2022-01-01 00:22 | ED.LOWEXIN ---
HPI - Extremity Injury (Lower) General Chief Complaint: Extremity Injury, Lower Stated Complaint: Swelling on right leg Time Seen by Provider: 01/01/22 00:22 Source: patient Mode of arrival: ambulatory Limitations: no limitations History of Present Illness HPI Narrative: this is a 46-year-old female that presents with some 3 to 4 day history of posterior right knee discomfort, with some mild swelling in her ankle has good range of motion with no known injury no calf pain no calf swelling no redness or erythema no warmth or tenderness in the calf area. Injury: Right: knee ( posterior knee pain) Related Data Home Medications Medication Instructions Recorded Confirmed gabapentin 300 mg PO QID 09/04/19 01/01/22 Allergies Allergy/AdvReac Type Severity Reaction Status Date / Time cyclobenzaprine Allergy Hives Verified 01/01/22 00:13 [From Flexeril] Review of Systems Review of Systems: All systems reviewed & are unremarkable except as noted in HPI and below PMFSH Past Medical History Medical History Abdominal pain, chronic, bilateral lower quadrant Asthma COPD (chronic obstructive pulmonary disease) Fibromyalgia Smoker Surgical History Surgical History H/O: hysterectomy S/P cholecystectomy Family History Family History Father Cerebrovascular accident Social History Social History Smoking packs per day: 0.75 Smoking cigarettes per day: 15.0 Years smoked: 20 Smoking pack-years: 15.00 Smoking status: Current every day smoker Tobacco type: cigarettes Alcohol intake: never Substance use: current Substance use type: marijuana Last use: 04/26/20 Gender identity (if verbalized by the patient): Female Spiritual care concerns: No Exam Const: General: no acute distress and alert Orientation/consciousness: patient oriented x3 HENMT: Head: normal to inspection Eyes: Conjunctivae: conjunctivae normal Pupils: Equal, round and reactive pupils present Neck: Neck: normal visual inspection, no lymphadenopathy and no meningeal signs Chest: Chest palpation & inspection: normal inspection of the chest Resp: Effort & Inspection: normal respiratory effort Cardio: Rate: regular rate Rhythm: regular rhythm GI: GI Palp: Yes Soft to palpation Percussion: Yes normal to percussion : General: Yes no CVA tenderness Back/Spine/Pelvis: Back: no CVA tenderness Skin: General skin exam: normal color Rashes: no rashes Neuro: General: patient oriented x3 Extrem: Other: Mild swelling and cyst-like structure in the posterior knee consistent with a Walter cyst Psych: Mental Status: mental status grossly normal Affect: normal affect Attitude: cooperative Course Course Emergency Course: patient was given 60mg IM Toradol and Noble wrap was placed. Critical Care Time Critical Care Time Critical Care Time: No Discharge Plan Discharge Clinical Impression: Walter's cyst of knee Qualifiers: Laterality: right Qualified Code(s): M71.21 - Synovial cyst of popliteal space [Walter], right knee Patient Disposition: Home, Self-Care Condition: Stable Instructions: Antibiotic Form, Walter Cyst (ED) Additional Instructions: take medicine as prescribed, continue Noble wrap and follow up with primary care physician for possible MRI to confirm a Walter cyst. Prescriptions: New naproxen 500 mg tablet 500 mg PO BID 7 Days Qty: 14 RF: 0 No Action gabapentin 300 mg capsule 300 mg PO QID RF: 0 Follow-up/Referrals: Caroline,MD Abner [Primary Care Provider] - Time of Disposition: 00:26
[2022-01-01] MEDS: KETOROLAC (*BKC) 60 MG/2 ML VIAL IM (00:33)
--- NOTE | 2022-01-01 00:40 | PC.NURSE ---
nithin wrap applied to right knee
[2022-01-01 01:03] VITALS: BP 112/85; PULSE 72; RESP 16; TEMP 37; O2SAT 97
== END 2022-01-01 01:05 | disposition home or self-care (01) ==
PROVIDERS: Emergency Provider Emergency Medicine; PCP Family Medicine
DX: M71.21 Synovial cyst of popliteal space [Baker], right knee (principal)
CPT/HCPCS: 96372; 99283; J1885

== ENCOUNTER 2024-12-31 10:21 | Emergency (ER) | payer OTHER, SELFPAY ==
[2024-12-31] VITALS (22 sets, daily range): BP systolic 132–150; BP diastolic 98–112; PULSE 72–95; RESP 12–23; TEMP 36.7; O2SAT 98–100
--- NOTE | ~2024-12-31 | CT_ITS ---
EXAMINATION: CT brain wo con DATE: 12/31/2024 11:24 INDICATION: Bilateral upper and lower limb weakness. Confusion. TECHNIQUE: Computed tomography (CT) of the head was performed without intravenous contrast. Sagittal and coronal reconstructions were performed. The mA was adjusted according to patient size. Iterative reconstruction technique was employed. The dose-length product was 529.67 mGy-cm. COMPARISON: None FINDINGS: No acute intracranial hemorrhage, acute infarction or abnormal extra axial fluid collection. Ventricl es are normal and symmetric. No mass/mass effect. The orbits, paranasal sinuses and mastoid air cells are normal. IMPRESSION: 1. Normal head CT Reviewed, dictated and finalized at location A. IMPRESSION: 1. Normal head CT
--- NOTE | 2024-12-31 10:24 | ED_ITS ---
HPI - Weakness General Chief complaint: Weakness Stated complaint: weakness Time Seen by Provider: 12/31/24 10:23 Source: EMS Mode of arrival: EMS Limitations: no limitations History of Present Illness HPI Narrative: 49-year-old female, smoker with a history of asthma / COPD, fibromyalgia, joint pain, Chronic abdominal pain was brought in by EMS -- she was found down on the sidewalk outside a bank. She was alert and oriented and complained of generalized weakness with numbness and tingling of her extremities. The patient denied any chest pain or shortness of breath. No focal weakness noted. -- right hip pain -- The patient snorted fentanyl and amphetamine 6 hours ago. MD Complaint: generalized weakness Onset (ago): hour(s) ( 6 hours) Duration: constant Location: generalized Migration: none Severity: severe Quality: tingling and numbness Relieving factors: none Exacerbating factors: none Associated symptoms: denies other symptoms Related Data Home Medications ?Medication ?Instructions ?Recorded ?Confirmed ?Last Taken ?Type gabapentin 300 mg capsule 300 mg PO QID 09/04/19 01/01/22 10/24/20 History Allergies Allergy/AdvReac Type Severity Reaction Status Date / Time cyclobenzaprine (From Allergy Hives Verified 01/01/22 00:13 Flexeril) Review of Systems 2 Review of Systems: All systems reviewed & are unremarkable except as noted in HPI and below Constitutional: Constitutional: Reports as per HPI, Reports no additional constitutional complaints and Reports weakness Eyes: Eyes: Reports as per HPI and Reports no additional eye complaints ENT: Reports system reviewed and no additional complaints, except as documented and Reports as per HPI Cardiovascular: Cardiovascular: Reports as per HPI and Reports no additional cardiovascular complaints Respiratory: Respiratory: Reports as per HPI and Reports no additional respiratory complaints Gastrointestinal: Gastrointestinal: Reports as per HPI and Reports no additional gastrointestinal complaints Genitourinary: Genitourinary: Reports no additional female genitourinary complaints and Reports as per HPI Musculoskeletal: Musculoskeletal: Reports no additional musculoskeletal complaints and Reports as per HPI Integumentary/Breasts: Skin/Breast: Reports system reviewed and no additional complaints, except as docu and Reports as per HPI Neurologic: Reports system reviewed and no additional complaints, except as documented and Reports as per HPI Comments: patient complains of numbness and tingling of her extremities with without any sensory loss. No motor deficits noted. Psychiatric: Psychiatric: Reports no additional psychiatric complaints and Reports as per HPI Endocrine: Endocrine: Reports no additional endocrine complaints and Reports as per HPI Hematologic/Lymphatic: Hematologic/Lymphatic: Reports no additional hematologic/lymphatic complaints and Reports as per HPI Allergic/Immunologic: Allergic/Immunologic: Reports no additional allergic/immunologic complaints and Reports as per HPI [facility] Past Medical History Medical History Abdominal pain, chronic, bilateral lower quadrant Asthma COPD (chronic obstructive pulmonary disease) Fibromyalgia Smoker Surgical History Surgical History H/O: hysterectomy S/P cholecystectomy Family History Family History Father Cerebrovascular accident Social History Social History Smoking packs per day: 0.75 Smoking cigarettes per day: 15.0 Years smoked: 20 Smoking pack-years: 15.00 Smoking status: Current every day smoker Tobacco type: cigarettes Alcohol intake: never Substance use: current Substance use type: marijuana and methamphetamine Last use: 04/26/20 Living arrangements: alone Occupation/Education: unemployed Gender identity (if verbalized by the patient): Female Spiritual care concerns: No Exam 2 Const: General: ill appearing Nutritional Appearance: thin O rientation/consciousness: patient oriented x3 Limitations: no limitations HENMT: Head: normal to inspection Ears: external ears normal F nithin/Nose/Sinus: Normal external nose present Face and sinus: normal facial exam Mouth: Yes Normal oral and palatal mucosa present Throat: posterior oropharynx normal Eyes: Conjunctivae: conjunctivae normal Pupils: Equal, round and reactive pupils present EOM: EOMs intact bilaterally Direct Ophthalmoscopy: no photophobia Neck: Neck: normal visual inspection, no lymphadenopathy and no meningeal signs Chest: Chest palpation & inspection: normal inspection of the chest Resp: Effort & Inspection: normal respiratory effort Auscultation: clear to auscultation bilaterally Cardio: Rate: regular rate Rhythm: regular rhythm GI: GI Palp: Yes Soft to palpation Auscultation: normal bowel sounds O ther: no tenderness/ rigidity /rebound. : General: Yes no CVA tenderness Back/Spine/Pelvis: Back: no CVA tenderness Skin: General skin exam: normal color Rashes: no rashes Wounds: no wounds Neuro: General: patient oriented x3, moves all extremities, no meningeal signs, no focal motor deficits and CN's II-XI intact bilaterally Cranial nerves: Yes Nystagmus not present Speech: normal speech Gait exam (Neuro): Normal gait present Extrem: General: normal to inspection and no clubbing, cyanosis or edema Psych: Mental Status: mental status grossly normal Affect: normal affect Attitude: cooperative Course Course Emergency Course: Generalized weakness paresthesias of extremities amphetamine/fentanyl abuse urinary tract infection Vital Signs Vital signs: Vital Signs Pulse Rate 77 12/31/24 10:53 Respiratory Rate 18 12/31/24 10:53 Pulse Oximetry 99 12/31/24 10:53 Temperature 36.7 C 12/31/24 10:58 Pulse Rate 86 12/31/24 13:16 Respiratory Rate 22 H 12/31/24 13:16 Blood Pressure 132/98 H 12/31/24 13:16 Pulse Oximetry 99 12/31/24 13:16 Oxygen Delivery Room Air 12/31/24 13:16 MDM - Weakness MDM Narrative Medical decision making narrative: amphetamine abuse urinary tract infection Differential Diagnosis Differential diagnosis: Likely anemia and sepsis Medical Records Attestation: I reviewed the patient's medical records. Lab Data Attestation: I reviewed the patient's lab results. 12/31/24 10:57 12/31/24 10:57 Labs: Lab Results 12/31/24 12/31/24 Range/Units 10:57 11:24 WBC 8.8 (4.8-10.8) K/mm3 RBC 4.36 (4.20-5.40) M/mm3 Hgb 13.4 (12.0-15.0) g/dL Hct 39.7 (35.0-49.0) % MCV 91.1 (78.0-102.0) fL MCH 30.7 (27.0-31.0) pg MCHC 33.8 (32-36) g/dL RDW 13.0 (11.6-14.4) % Plt Count 268 (150-420) K/mm3 MPV 9.0 L (9.2-11.8) fl Immature Gran % (Auto) 0.2 H (0.0-0.0) % Neut % (Auto) 66.3 (50.0-70.0) % Lymph % (Auto) 22.5 (18.0-42.0) % [place] % (Auto) 9.7 (2.0-11.0) % Eos % (Auto) 0.6 L (1.0-6.0) % Baso % (Auto) 0.7 (0.0-1.0) % Lymph # (Auto) 1.97 (1.10-4.50) K/mm3 [place] # (Auto) 0.85 (0.10-0.90) K/mm3 Eos # (Auto) 0.05 (0.02-0.50) K/mm3 Baso # (Auto) 0.06 (0.00-0.10) K/mm3 Abs Immat Gran (auto) 0.02 H (0.00-0.00) K/mm3 Absolute Neuts (auto) 5.80 (1.70-7.20) K/mm3 Absolute Nucleated RBC 0.00 (0.00-0.00) K/mm3 Nucleated RBC % 0.0 (0-0.0) % PT 10.5 (9.50-12.1) Seconds INR 0.9 Sodium 143 (136-145) mmol/L Potassium 3.9 (3.5-5.1) mmol/L Chloride 105 (98-108) mmol/L Carbon Dioxide 30 (21-32) mmol/L Anion Gap 8 (4-12) mmol/L BUN 14 (7-18) mg/dL Creatinine 0.85 (0.55-1.02) mg/dL Estim Creat Clear Calc 58 ml/min Estimated GFR > 60 (59 - ) Glucose 119 H (70-99) mg/dL Calculated Osmolality 297 H (285-295) mOsm/kg Lactic Acid 0.7 (0.4-2.0) mmol/L Calcium 9.1 (8.5-10.1) mg/dL Total Bilirubin 0.3 (0.00-1.00) mg/dL AST 20 (15-37) U/L ALT 32 (14-59) U/L Alkaline Phosphatase 115 (46-116) U/L Total Creatine Kinase 203 H (26-192) U/L Troponin I < 4.0 (0.00-60.4) ng/L Total Protein 7.5 (6.4-8.2) g/dL Albumin 3.9 (3.4-5.0) g/dL Urine Color Yellow (Yellow) Urine Appearance Sl cloudy A (Clear) Urine pH 5.5 (5.0-8.0) Ur Specific [place] >= 1.030 H (1.010-1.020) Urine Protein 2+ H (Negative) Urine Glucose (UA) Negative (Negative) Urine Ketones Trace H (Negative) Ur Blood (Man) Trace-intact H (Negative) Urine Nitrate Positive H (Negative) Urine Bilirubin Negative (Negative) Urine Urobilinogen 0.2 (0.2-1.0) mg/dL Leukocyte Esterase Rfl Trace H (Negative) NBA/UL Urine RBC None seen (0-2) /hpf Urine WBC 10-15 H (0-3) /hpf Ur Squamous Epith Cells Few (Few) /hpf Urine Bacteria 3+ H (None) /hpf Urine Opiates Screen Negative (Negative) Urine Methadone Screen Negative (Negative) Ur Barbiturates Screen Negative (Negative) Ur Phencyclidine Scrn Negative (Negative) Ur Amphetamine Screen Positive A (Negative) U Benzodiazepines Scrn Negative (Negative) Urine Cocaine Screen Negative (Negative) U Cannabinoids Screen Positive A (Negative) ECG Data EKG #1: ECG completion date: 12/31/24 ECG completion time: 10:57 Interpretation: Normal sinus rhythm. Normal axis. No ST elevation. Discharge Plan Discharge Clinical Impression: Amphetamine abuse Urinary tract infection Qualifiers: Urinary tract infection type: acute cystitis Hematuria presence: without hematuria Qualified Code(s): N30.00 - Acute cystitis without hematuria Patient Disposition: Home Condition: Stable Instructions: Antibiotic Form, Urinary Tract Infection in Women (DC), Methamphetamine Use Disorder (ED) Patient Language: Togolese Prescriptions: New ciprofloxacin HCl [Cipro] 250 mg tablet 250 mg PO Q12H Qty: 10 0RF No Action naproxen 500 mg tablet 500 mg PO BID 7 Days Qty: 14 0RF Rx Instructions: take medication with meals gabapentin 300 mg capsule 300 mg PO QID Follow-up/Referrals: UNKNOWN,DOCTOR [Non-Staff] - Time of Disposition: 12:44
--- NOTE | 2024-12-31 10:37 | PC.NURSE ---
On 12/31/24, the student, [laureano jacobo ], provided care and completed [facility] documentation on this patient. I have reviewed the student's documentation and agree with the findings.
--- NOTE | 2024-12-31 10:40 | ECG_ITS ---
Test Date: 2024-12-31 10:57:53 Measurements Intervals [place] Rate: 75 P: 88 LA: 80 QRS: 81 QRSD: 106 T: 68 QT: 390 QTc: 437 Interpretive Statements SINUS RHYTHM WITH SHORT LA INTERVAL MINIMAL Q WAVES- INFERIOR LEADS BASELINE ARTIFACT- I, III, AVR, AVL, AVF, V1 BORDERLINE ECG No previous ECG available for comparison Electronically Signed On 12-31-2024 10:58:29 CDT by James Borja D.O.
[2024-12-31 11:01] LABS: Basophils Absolute Auto 0.06 K/mm3 (0.00-0.10); Basophils Percent Auto 0.7 % (0.0-1.0); Eosinophils Absolute Auto 0.05 K/mm3 (0.02-0.50); Eosinophils Percent Auto 0.6 % (1.0-6.0); Hematocrit 39.7 % (35.0-49.0); Hemoglobin 13.4 g/dL (12.0-15.0); Immature Granulocyte Absolute 0.02 K/mm3 (0.00-0.00); Immature Granulocyte Percent A 0.2 % (0.0-0.0); Lymphocytes Absolute Auto 1.97 K/mm3 (1.10-4.50); Lymphocytes Percent Auto 22.5 % (18.0-42.0); Mean Corpuscular HGB Conc 33.8 g/dL (32-36); Mean Corpuscular Hemoglobin 30.7 pg (27.0-31.0); Mean Corpuscular Volume 91.1 fL (78.0-102.0); Monocytes Absolute Auto 0.85 K/mm3 (0.10-0.90); Monocytes Percent Auto 9.7 % (2.0-11.0); Neutrophils Percent Auto 66.3 % (50.0-70.0); Platelet Count Result 268 K/mm3 (150-420); Red Blood Count 4.36 M/mm3 (4.20-5.40); White Blood Count 8.8 K/mm3 (4.8-10.8)
[2024-12-31 11:15] LABS: INR 0.9; Prothrombin Time 10.5 Seconds (9.50-12.1)
--- OUTSIDE RECORDS SUMMARY | 2024-12-31 11:24 | XMS_ITS | Encounter Summary ---
Author Organization [facility] Healthcare Address [address] [place] [address] Care Team Providers Care Assembler Surgical Garment Name Role Phone Janette Hair PT Unavailable Unavailable Abner Velazquez MD Primary Care Provider [phone] Encounter Details Date Type Department Care Team (Late st Contact Info) Description 03/15/2023 Documentation [facility] [address] [place], [place] [phone] Amanda Puentes Social History Tobacco Use Types Packs/Day Years Used Date Smoking Tobacco: Heavy Smoker Cigarettes Smokeless Tobacco: Never Alcohol Use Standard Drinks/Week Comments Yes 0 (1 standard drink = 0.6 oz pur e alcohol) PHQ-2 Answer Date Recorded PHQ-2 Total Score (If total score is 3 or more points, staff should administer the PHQ-9) 0 01/26/2021 Personal Safety Answer Date Recorded Have you ever been in or are you currently in a harmful physical or emotional relationship or is someone making you feel afraid or unsafe? 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
--- OUTSIDE RECORDS SUMMARY | 2024-12-31 11:24 | XMS_ITS | Encounter Summary ---
Author Organization [facility] Healthcare Address [address] [place] [address] Care Team Providers Care Bail Agent Name Role Phone Janette Hair PT Unavailable Unavailable Radha Valenzuela NP Primary Care Provider + [phone] Abner Velazquez MD Primary Care Provider [phone]- [phone] Reason for Visit * Reason Onset Date Comments Scheduling Appointments 02/07/2021 Confirim ing mammogram appt Encounter Details Date Type Department Care Team (Late st Contact Info) Description 02/07/2021 Telephone [facility] [address] [place] [id number] Shelley Baez, Scheduling Appointments ( Confiriming mammogram appt) Social History Tobacco Use Types Packs/Day Years Used Date Smoking Tobacco: Heavy Smoker Cigarettes Smokeless Tobacco: Never Alcohol Use Standard Drinks/Week Comments Yes 0 (1 standard drink = 0.6 oz pur e alcohol) PHQ-2 Answer Date Recorded PHQ-2 Total Score (If total score is 3 or more points, staff should administer the PHQ-9) 0 01/26/2021 Comments No Sex and Gender Information Value Date Recorded Sex Assigned at Not on file 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
--- OUTSIDE RECORDS SUMMARY | 2024-12-31 11:24 | XMS_ITS | Data Portability ---
Author Organization RIA MALINIJohnny Address [address] [facility] [place] [address] Assessment Encounter Date Assessment Date Assessment LastModified by Organization Details LastModified Time 08/29/2018 08/29/2018 Pt and domitilaance walked out before this PCP could explain our recommended treatment at this point. [email or web address] Not available 08/30/2018 18:22:58 Plan of Treatment Reminders Order Date Submit Date Provider Last Modified By Organization Details Last Modified Time Details Appointments None recorded. Lab CBC 2018 019 MARCUS UNDERWOOD, [address] [place] [address], [address], [place], [address], 9 03:04:36 lipid panel, serum 2018 019 MARCUS UNDERWOOD, [address] [place] [address], [address], [place], [address], 9 03:04:36 CMP, serum or plasma 2018 019 MARCUS KJ, [address] [place] [address], [address], [place], [address], 9 03:04:37 TSH, ultra-sens itive, serum 2018 019 MARCUS UNDERWOOD, [address] [place] [address], [address], [place], [address], 9 03:04:37 [facility]erral pain [facility], [address], [place], [address], 9 15:03:13 physical therapy back referral 2017 018 [facility], [address] [place] [address], [place], [address], 8 14:04:40 physical therapy neck referral - history of fibromylag ia-please work on shoulders bilateral as well 2016 017 [facility], [address], [address], [place], [address], 8 09:30:41 Procedures None recorded. Surgeries None recorded. Imaging NM, hepatobili israel scan, w/o CCK 2017 018 MARCUS [facility] ([facility] Registration/ Lab, [address] [place], [address], 8 15:13:29 XR, lumbar spine - chronic back pain-worse elizabeth past 2 months-sci atica pain 2017 018 ZEBULON [facility] ([facility]) Registration/ Lab, [address] [facility], [place], [address], 8 07:01:39 Medication Orders Cymbalta 30 mg capsule,de layed release 2018 019 ssuthan Not available 9 12:08:42 omeprazole 40 mg capsule,de layed release 2017 018 INTERFACE Not available 8 12:03:04 sucralfate 1 gram tablet 2017 018 ssuthan Not available 9 11:44:51 Zoloft 50 mg tablet 2017 018 ssuthan [id number], [address], [place], [address], 9 11:44:49 baclofen 10 mg tablet 2017 018 [facility], [address], [place], [address], 8 11:06:31 naproxen 500 mg tablet 2017 018 [facility], [address], [place], [address], 9 11:44:40 gabapentin 300 mg capsule 2017 018 INTERFACE Not available 8 11:07:09 Zoloft 50 mg tablet 2017 018 [facility], [address], [place], [address], 9 11:44:49 baclofen 10 mg tablet 2017 018 [facility], [address], [place], [address], 8 15:37:22 naproxen 500 mg tablet 2017 018 [facility], [address], [place], [address], 9 11:44:40 gabapentin 600 mg tablet 2017 018 [facility], [address], [place], [address], 9 11:44:15 baclofen 20 mg tablet 2016 017 [facility], [address], [place], [address], 9 11:14:32 naproxen 500 mg tablet 2016 017 ssuthan [facility], [address], [place], [address], 9 11:44:40 Patient TargetsNo targets recorded. Patient Instructions Encounter Date Encounter Id Patient Instructions Last Modified By Organization Details Last Modified Time 07/27/2018 [id number] influenza (flu) vaccine: care instructions Not available 07/27/2018 11:07:46 deciding about u sing medicines to quit smoking Not available 07/29/2018 08:26:45 Quitting Tobacco : Care Instructions Not available 07/29/2018 08:26:45 08/29/2018 [id number] gastroesophageal reflux disease (GERD): care instructions Not available 08/29/2018 12:03:03 11/29/2018 [id number] abdominal pain: care instructions uthan Not available 11/29/2018 12:08:42 Quitting Tobacco : Care Instructions uthan Not available 11/29/2018 12:08:42 marijuana use an d addiction ssuthan Not available 11/29/2018 12:08:42 Reason for Referral history of fibromylagia-plea se work on shoulders bilateral as well Referring Physician: [facility], Encounter Date: 08/13/2017 Referring Physician: Rad[facility], Encounter Date: 10/03/2017 Pain Management Referral for Primary fibromyalgia syndrome Per the pt request Referring Physician: Regina Conklin, Internal Medicine, Encounter Date: 11/29/2018 Results Created Date Observation Date Name Description Value Unit Range Abnormal Flag Note LastModifiedBy Organization Detail LastModifiedTime 11/29/19 18 11/27/2017 XR, lumba r spine No observ ation record ed. [email or web address] Not Available 11/30 14:03:18 09/11/20 18 09/11/2018 NM, hepat obili israel scan, w/o CCK No observ ation record ed. [email or web address] Not Available 2018 15:54:48 09/11/20 18 09/11/2018 NM, hepat obili israel scan, w/o CCK No observ ation record ed. [facility] [address] [place], [address], 09/11/2018 15:55:15 Result Notes None recorded. Problems Name Problem SNOMED Code Status Onset Date Resolution Date Notes Provider Name and Address Organization Details Recorded Time Moderate chronic obstructive pulmonary disease 584290671 Active 2016 HERNANDO Suarez Attn: Elton crawford,[address] [facility], [place], [address], [facility] 7 12:12:39 Primary fibromyalgia syndrome 06524650 Active 2016 HERNANDO Suarez Attn: Elton crawford,[address] [facility], [place], [address], [facility] 7 12:12:42 Problem Notes None recorded. Procedures Surgical History Date Name Laterality Status Provider Name and Address Organization Details Recorded Time Tubal Ligation completed Evon Rehman MA [facility] 12/18/2016 10:42:05 Total hysterectomy completed Amanda Rodriguez MA [facility] 08/13/2017 12:02:57 Imaging Results Imaging Date Name Status LastModified by Organization Details LastModified Time 11/27/2017 XR, lumbar spine completed [email or web address] Informat ion not available 11/30/2017 14:03:18 09/11/2018 NM, hepatobiliary scan, w/o CCK completed [email or web address] Information not available 09/19/2018 15:54:48 09/11/2018 NM, hepatobiliary scan, w/o CCK completed [email or web address] [facility] [address] [place], [address], 09/11/2018 15:55:15 Procedure Notes None recorded. Medical Equipment None Reported. Allergies Allergen ID Allergen Name Allergen Category Reaction Reaction Severity Criticality Documentation Date Start Date Code Code System Note Provider Name and Address Organization Details Recorded Time 523104 cyclobenz aprine hydrochlo ride medicatio n hives Not available Not available 08/13/2017 88134 RxNorm Not Available Not Available Not Available 736923 tramadol medicatio n Not available Not available Not available 11/29/2018 84455 RxNorm Not Available Not Available Not Available Medications Name Sig Start Date Stop Date Status Note LastModified by Organization Details LastModified Time cyclobenzapr ine 10 mg tablet 08/13 completed Not Available Not Available Not Available hydrocodone 7.5 mg-ibuprofen 200 mg tablet 08/13 completed Not Available Not Available Not Available gabapentin 600 mg tablet TAKE 1 TABLET(S ) 3 TIMES A DAY BY ORAL ROUTE. 11/29 completed Not Available Not Available Not Available ibuprofen 800 mg tablet 08/13 completed Not Available Not Available Not Available hydrocodone 5 mg-acetamino phen 325 mg tablet 11/29 completed Not Available Not Available Not Available meloxicam 15 mg tablet 08/13 completed Not Available Not Available Not Available sucralfate 1 gram tablet TAKE 1 TABLET BY MOUTH FOUR TIMES A DAY 11/29 completed Not Available Not Available Not Available ondansetron HCl 4 mg tablet 11/29 completed Not Available Not Available Not Available prednisone 20 mg tablet 08/13 completed Not Available Not Available Not Available acetaminophe n 300 mg-codeine 30 mg tablet 08/29 completed Not Available Not Available Not Available sulfamethoxa zole 800 mg-trimethop rim 160 mg tablet 08/29 completed Not Available Not Available Not Available omeprazole 40 mg capsule,merle yed release TAKE 1 CAPSULE BY MOUTH EVERY DAY active Not Available Not Available No t Available tramadol 50 mg tablet 08/13 completed Not Available Not Available Not Available baclofen 20 mg tablet Take 1 tablet 4 times a day by oral route as needed. 11/29 completed Not Available Not Available Not Available oxycodone-ac etaminophen 5 mg-325 mg tablet 11/29 completed Not Available Not Available Not Available methocarbamo l 750 mg tablet 11/29 completed Not Available Not Available Not Available baclofen 10 mg tablet TAKE 1 TABLET BY MOUTH FOUR TIMES A DAY NEEDED active Not Available Not Available No t Available gabapentin 300 mg capsule TAKE 1 TABLET BY MOUTH AT BREAKFAS T,LUNCH, DINNER AND BEDTIME active Not Available Not Available No t Available ergocalcifer ol (vitamin D2) 1,250 mcg (50,000 unit) capsule 11/29 completed Not Available Not Available Not Available ibuprofen 600 mg tablet 08/13 completed Not Available Not Available Not Available albuterol sulfate HFA 90 mcg/actuatio n aerosol inhaler inhale 2 puffs 2018 active Not Available Not Available Not Avai lable ondansetron 4 mg disintegrati ng tablet 11/29 completed Not Available Not Available Not Available sertraline 50 mg tablet TAKE 1 TABLET BY MOUTH EVERY DAY 11/29 completed Not Available Not Available Not Available naproxen 500 mg tablet Take 1 tablet twice a day by oral route as needed. 11/29 completed Not Available Not Available Not Available Cymbalta 30 mg capsule,merle yed release Take 1 capsule every day by oral route. 2018 active Not Available Not Available Not Avai lable Atrovent HFA 17 mcg/actuatio n aerosol inhaler 11/29 completed Not Available Not Available Not Available albuterol sulfate 11/29 completed Not Available Not Available Not Available Aerospan 80 mcg/actuatio n HFA aerosol inhaler 11/29 completed Not Available Not Available Not Available Vitals Date Recorded Body height Body mass index (BMI) Body weight Heart rate Oxygen saturation Oxygen saturation in Arterial blood by Pulse oximetry Respiratory rate Body temperature Systolic blood pressure Diastolic blood pressure Provider Name and Address Organization Details Last Updated DateTime 8 170.18 cm 21.5 kg/m2 68160.1 5 g 75 /min 100 % 100 % 16 /min 97.5 [degF] 122 mm[Hg] 66 mm[Hg] Mimi Flower MA [place] [facility] 8 15:12:30 Date Recorded Body height Body mass index (BMI) Body weight Oxygen saturation Oxygen saturation in Arterial blood by Pulse oximetry Heart rate Respiratory rate Body temperature Systolic blood pressure Diastolic blood pressure Provider Name and Address Organization Details Last Updated DateTime 8 170.18 cm 21.1 kg/m2 90219.1 8 g 97 % 97 % 79 /min 16 /min 96.7 [degF] 110 mm[Hg] 66 mm[Hg] Amanda Rodriguez MA [place] [facility] 8 11:01:12 Date Recorded Body height Body mass index (BMI) Body weight Body temperature Heart rate Respiratory rate Systolic blood pressure Diastolic blood pressure Provider Name and Address Organization Details Last Updated DateTime 8 170.18 cm 20.7 kg/m2 87699.5 9 g 98 [degF] 80 /min 16 /min 114 mm[Hg] 88 mm[Hg] Flakita Suarez MA [facility] 8 11:08:06 Date Recorded Body height Body mass index (BMI) Body weight Heart rate Respiratory rate Body temperature Systolic blood pressure Diastolic blood pressure Provider Name and Address Organization Details Last Updated DateTime 9 170.18 cm 20.9 kg/m2 44654.2 2 g 80 /min 12 /min 96.8 [degF] 116 mm[Hg] 76 mm[Hg] Moriah Hinesmerced turcios, [facility] 9 11:20:23 Date Recorded Body height Oxygen saturation Oxygen saturation in Arterial blood by Pulse oximetry Heart rate Respiratory rate Body mass index (BMI) Body weight Systolic blood pressure Diastolic blood pressure Provider Name and Address Organization Details Last Updated DateTime 7 170.18 cm 100 % 100 % 98 /min 16 /min 21.9 kg/m2 97569.4 9 g 124 mm[Hg] 82 mm[Hg] Amanda Rodriguez MA [facility] 7 12:06:23 Social History Question Answer Notes LastModified by Organizat ion Details LastModified Time Tobacco Smoking Status Current Every Day Smoker Evon Rehman MA [facility], [facility] 12/18/2016 10:41:35 What Was The Date Of Your Most Recent Tobacco Screening? 11/29/2018 Information not available 04/10/2019 How Much Tobacco Do You Smoke? 0.5 PPD [email or web address] Information not available 12/18/2016 Has Tobacco Cessation Counseling Been Provided? Yes Information not available 11/29/2018 On What Date Was Tobacco Cessation Counseling Provided? 11/29/2018 Information not available 11/29/2018 How Many Years Have You Smoked Tobacco? 20 [email or web address] Information not available 08/13/2017 Sex: Unknown Functional Status None recorded. Mental Status None recorded. Family History Relationship Description Onset Age of this Age Resolved Age Notes LastModified by Organization Details LastModified Time Mother Asthma [email or web address] Not available 1 10/13/2016 12:02:32 Father Asthma amcmanis Not available 1 10/13/2016 12:02:32 Sister Asthma amcmanis Not available 1 10/13/2016 12:02:32 Medical History Condition Response Acid Reflux (GERD) Y Headaches/Migraines Y COPD Y Asthma Y Osteoporosis Y Gynecological History Statement/Question Response Flow Heavy Sexually Active? Y Menses Monthly N STIs/STDs N Date of Last Pap Smear Sexual Problems? Y Age at Menarche 14 Current Control Method Tubal Ligat ion Age at First Child 16 LMP Approximate Obstetrics History GPAL:G 2 P 2 0 0 2 Type Value Full Term 2 Living 2 Total 2 Immunizations Vaccine Type Date Status Note Provider Nam e and Address Organization Details Recorded Time Influenza, split virus, quadrivalent, preservative 8 completed Not Available [facility] 10/04/2019 02:46:10 Past Encounters Encounter ID Performer Location Encounter Start Date Encounter Closed Date Diagnosis/Indication Diagnosis SNOMED-CT Code Diagnosis ICD10 Code Diagnosis Note [id number] MD Marybeth Boyle ([place] [address]) [address] [place] [address] 12/18/2016 10:15:05 12/18/2016 14:59:58 Menorrhagia 279292382 N92.0 [id number] HERNANDO Suarez ([place] [address]) [address] [place] [address] 08/13/2017 11:49:05 08/13/2017 14:42:48 Neck pain 19633608 M54.2 Counseled on neck pain, medication s as directed- encourage stress management , PT referral [id number] HERNANDO Suarez ([place] [address]) [address] [place] [address] 10/03/2017 14:53:02 10/04/2017 15:08:54 Low back pain 831775187 M54.5 Counseled on back pain and medication s discussed- will change Gabapentin to 600 mg TID (advise pt to increase dose every 3 days till to rx'd dose) Ice/heat alternate to back. Naproxen/F lexeril for pain/tight ness. Back/shoul letty stretches encouraged . Will start PT for neck and back-x-ray today, once PT completed to f/u Primary fi bromyalgia syndrome 93934328 M79.7 Will start Zoloft 50 mg daily along with change to Gabapentin [id number] HERNANDO Suarez [address] [place] [address] 07/27/2018 10:47:50 08/01/2018 15:14:11 Low back pain 485935600 M54.5 Counseled on back pain and medication s discussed- Ice/heat alternate to back. Naproxen/F lexeril for pain/tight ness. F/u for no improvemen t or in 3 months-chris ner if needed Primary fi bromyalgia syndrome 66307950 M79.7 continue Zoloft-f/u 3 months Administra tion of influenza vaccine 66395447 Z23 Tobacco de pendence syndrome 29538401 F17.490 [id number] MD Marybeth Mathur [address] [place] [address] 08/29/2018 10:17:32 09/02/2018 10:11:39 Gastroesophageal reflux disease 188383669 K21.9 Disorder o f gallbladder 19703222 K82.9 [id number] Regina Conklin MD [place] [address] [place] [address] 11/29/2018 11:08:49 12/02/2018 09:16:11 Primary fibromyalgia syndrome 09230070 M79.7 Been told and already been referred by her previous PCP to Rheumatolo gist.Insis t referral to pain Mx as well , will doAgree to consider cymbalta , start with 30mg daily, aware of SEspt prefer to ct with gabapentin she is already on,Recomme nded aerobic exercise and engage herself Abdominal pain 27960340 R10.9 Generalise d, W/u before was inconclusi ve, may related to her excess use of marijuana, recommend to slow it down and quit. Already on omeprazole . Pt to schedule with per recent ER visit to [facility] on 11/20/18pt was explainedd to cut back caffeine, smoking soda ect. Smoker 64147016 F17.200 Recommend to slow down and quit at the earliest- 1 PPD Cannabis dependence 6650 5007 F12.20 Recommend to stay away from it. Adult [facility] th examination 992746481 Z00.00 Baseline labs Health Concerns Section Related Observation LastModified by Organization Detai ls LastModified Time None Recorded Concern Status LastModified by Organization Details LastModified Time None Recorded Advance Directives Directive None Recorded Payers Encounter Date Sequence Insurance Name Policy Number Policy Lal Covered Member ID Lal Member ID Guarantor Name 08/13/2017 1 [facility] (MEDICAID HMO) [id number] Yamileth Joan [id number] Yamileth Joan 10/03/2017 1 [facility] (MEDICAID HMO) [id number] Yamilteh Joan [id number] Yamileth Joan 07/27/2018 1 [facility] (MEDICAID HMO) [id number] 0003 Yamileth Joan [id number] Yamileth Joan 08/29/2018 1 [facility] (MEDICAID HMO) [id number] Yamileth Joan [id number] Yamileth Joan 11/29/2018 1 [facility] (MEDICAID HMO) [id number] 0003 Yamileth Joan [id number] Yamileth Joan Notes Date Note Type Note Provider Name and Address Organization Details Recorded Time 08/13/2017 text/html Neck PainReporte d bypatient.Trauma:no Neurological Complaints:numbness of the arms;tingling of the arms Pain:sharp;aching;wor se with movement;worse with activity;radiates to bilateral shoulder Pain Duration:1.5 yearsNotes: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[employer]-pain in neck worsens-history of fibromylagia HERNANDO Suarez Attn: Accounting,[address] [place], [address], [facility] 08/13/2017 14:03:36 10/03/2017 text/html Back PainReporte d bypatient.Location:pa in radiating to the foot Quality:sharp Severity:worsening;in terference with sleep Duration:intermittent Onset/Timing:recurren t episode Context:prior back problems Associated Symptoms:no fever; no weak limbs; no numbness of the legs/feet; no tingling; no incontinence; no shortness of breathNotes:notes fibro is also acting up and just feels terrible HERNANDO Suarez Attn: Accounting,[address] [facility], [place], [address], [facility] 10/04/2017 14:14:20 07/27/2018 text/html Back PainReporte d bypatient.Location:pa in radiating to the foot Quality:sharp Severity:worsening;in terference with sleep Duration:intermittent Onset/Timing:recurren t episode Context:prior back problems Associated Symptoms:no fever; no weak limbs; no numbness of the legs/feet; no tingling; no incontinence; no shortness of breathNotes:returns for medication refill-has not taken medications in over 6 months due to insurance issues-history of fibromylagia HERNANDO Suarez Attn: Accounting,[address] [facility], [place], [address], [facility] 07/29/2018 08:27:04 08/29/2018 text/html Pt presents with c/o severe epigastric pain. She had just been to the ER two days earlier and states that she is no better. She was agitated, and when her fiance came in the room, the agitation escalated to the point where they walked out saying profanities. Her daughter Mini remained calm and sane during this unpleasant moment. Tee Cook MD Attn: Accounting,[address] [facility], [place], [address], [facility] 08/30/2018 18:23:20 11/29/2018 text/html COPDReported bypatient.Onset/Timin g:intermittent Severity:not limitingGeneric HPI TemplateReported bypatient.Notes:Here to establish care with a new MD (already had issue with also Radha, does not want to involve with her care due to her behavior with other providers)pt says she is having fibromyalgia , already referred yet to make appt with Physical Therapy Professor. She has been taking gabapentin TID still not helping, prefer referral to Pain Mx as well.Agree to consider cymbaltaAlso having abd pain (been seen by surgeon and had w/u all became neg) Pt to schedule with (yet to schedule per the pt per last [facility] ER visit on 11/20/18. Pt already on omeprazole 40mg daily, does get burning at night. BTW pt agrees that she smokes marijuana pretty much daily for body pain (could have been the cause of her abd pain/ hyperemesis...)Does smoke upto 1 PPD. Denies issue with SOB /wheezing. 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
--- OUTSIDE RECORDS SUMMARY | 2024-12-31 11:24 | XMS_ITS | Clinical Summary ---
Author Organization [facility] Address [address] [place] [address] Phone Care Team Providers Care Dry Yard Worker Name Role Phone Tulio Lara MD Unavailable [phone] Radha Valenzuela APRN Primary Care Provider Allergies Active Allergy Reactions Criticality Noted Date Comments Cyclobenzaprine Hives High 11/21/2016 Tramadol Nausea 08/29/2018 Medications ipratropium (ATROVENT HFA) 17 MCG/ACT Aerosol SolutionIndicatio ns:Mild intermittent asthma without complication take 2 Puffs by inhalation every 6 hours. 17 g 3 7 Active Meloxicam 15 MG Tablet Take 15 mg by mouth daily. Active gabapentin (NEURONTIN) 300 MG Capsule Take by mouth. 7 Active naproxen (NAPROSYN) 500 MG Tablet Take 500 mg by mouth daily. Active ondansetron (ZOFRAN) 4 MG Tablet Take 1 Tab by mouth every 8 hours as needed for Nausea - 1st line. 10 Tab 8 Active sucralfate (CARAFATE) 1 GM Tablet TAKE 1 TABLET BY MOUTH FOUR TIMES A DAY 0 8 Active omeprazole (PRILOSEC) 40 MG CAPSULE DELAYED RELEASE TAKE 1 CAPSULE BY MOUTH EVERY DAY 1 8 Active Active Problems Problem Noted Date Diagnosed Date Abdominal pain, epigastric 09/04/2018 Asthma Arthritis Immunizations Immunization Administration Dates Next Due Covid-19, Mrna, Lnp-s, Pf, 30 Mcg/0.3 Ml Dose (Carolyn hamilton) 04/04/2021,02/21/2021 Influenza Vaccine greater than 3 yrs 10/31/2016 Influenza Vaccine, Quadrivalent, PF 09/12/2020,0 11/10/2016 Influenza, Injectable, Quadrivalent 07/27/2018 Influenza, Seasonal, Injectable, Undefined 10/31 Influenza, Trivalent, Adjuvanted, PF 10/31/2016 PNEUMONIA ADULT IM PPSV23 11/10/2016 PUR FLU 3+ YRS PRES FREE QUAD IM 11/10/2016 Pneumococcal Vaccine Adult - 23 Valent 7 Family History Medical History Relation Name Comments No Known Problems Father Cancer Maternal Grandmother Cervica l Asthma Mother Bipolar Disorder Mother No Known Problems Sister Relation Name Status Comments Father Alive Maternal Grandmother Mother Alive Sister Alive Social History Tobacco Use Types Packs/Day Years Used Date Smoking Tobacco: Every Day Cigarettes 0.5 31.1 Started: 11/10/1993 E-Vapor with Nicotine Smokeless Tobacco: Never Tobacco Cessation:Ready to Q uit: No; Counseling Given: Yes Alcohol Use Standard Drinks/Week Comments Yes 1 (1 standard drink = 0.6 oz pur e alcohol) social Sexually Active Control Partners Comments Not Currently Male Comments No Sex and Gender Information Value Date Recorded Sex Assigned at Not on file Legal Sex Female 9:20 PM CDT Gender Identity Not on file Sexual Orientation Not on file Last Filed Vital Signs Vital Sign Reading Time Taken Comments Blood Pressure 131/87 08/21/2024 1:02 AM FITTER TACKER Pulse 86 08/21/2024 1:02 AM FITTER TACKER Temperature 36.9 C (98.4 F) 08/21/2024 1:02 AM FITTER TACKER Respiratory Rate 18 08/21/2024 1:02 AM FITTER TACKER Oxygen Saturation 97% 08/21/2024 1:02 AM FITTER TACKER Inhaled Oxygen Concentration - - Weight 61.2 kg (135 lb) 08/21/2024 1:02 AM FITTER TACKER Height 170.2 cm (5' 7 ) 08/21/2024 1:02 AM FITTER TACKER Body Mass Index 21.14 08/21/2024 1:02 AM FITTER TACKER Plan of Treatment Health Maintenance Due Date Last Done Comments TdaP Immunization 1975 Hepatitis B Immunization (1 of 3 - 19+ 3-dose series) 12/30/1994 Pneumococcal Immunization Combined (2 of 2 - PCV) 11/10/2017 11/10/2016, 11/10/2016 Colonoscopy 12/30/2020 Colorectal Cancer Screening 12/30/2020 Mammogram 03/10/2022 03/10/2021 Influenza Immunization (#1) 2024 12/2 03/2020, 07/27/2018, 11/10/2016, Additional history exists SARS-COV-2 Immunization ( season) 2024 10/15/2021, 04/04/2021, 02/21/2021 Respiratory Syncytial Virus (RSV) Immunization (Adult) (1 - 1-dose 75+ series) 12/30/2050 Cervical Cancer Screening (CCS) Discontinued Pap Smear Discontinued 01/24/2017 Hepatitis C Virus (HCV) Screening Completed 05/18/2017 Discussion re Starting/Frequency of Mammograms Completed 03/10/2021 HPV/Cotest Discontinued Meningococcal Immunization (ACWY) Aged Out No longer eligible based on patient's age to complete this topic Rotavirus Immunization Aged Out No lo nger eligible based on patient's age to complete this topic Procedures Procedure Name Priority Date/Time Associated Diagnosis Comments HEPATITIS C ANTIBODY Routine 05/18/2017 5:04 PM CDT Pain in joint, multiple sites PATHOLOGY CYTOLOGY EMERGENCY PLANNING AND RESPONSE MANAGER Routine 01/24/2017 10:39 AM CDT DUB (dysfunctional uterine bleeding) from Last 3 Months or Most Recently Relevant to Health Maintenance Results * HEPATITIS C ANTIBODY (05/18/2017 5:04 PM CDT) hepatitis C antibody 0.17 <1 S/CO 05/19/2017 2:15 PM CDT [facility] Comment: Signal/Cutoff ratio < 0.79 is Nondetected Signal/Cutoff ratio 0.80-0.99 is Grayzone Signal/Cutoff ratio > 0.99 is Detected Supplemental assays are recommended if signal/cutoff ratio is >/=1.00. Signal/cutoff ratio result >/= 5.00 is 97% predictive of positivity for recombinant immunoblot assay (RIBA) and will be reported to the [place] Department of Public Health as required. Blood specimen (specimen) Butterfly Puncture / Unknown 05/18/2017 5:04 PM CDT 05/18/2017 5:04 PM CDT us Kristi Huitron MD CHEMISTRY ORDERABLES Final Resul t [facility] [address] [place] [address], [place] * PATHOLOGY CYTOLOGY EMERGENCY PLANNING AND RESPONSE MANAGER (01/24/2017 10:39 AM CDT) SPECIMEN ADEQUACY Satisfactory for evaluation. Endocervical cells present. 01/31/2017 9:47 AM CDT [facility] GENERAL CATEGORY EPITHELIAL CELL ABNORMALITY 01/31/2017 9:47 AM CDT [facility] DESCRIPTIVE DIAGNOSIS High grade squamous intraepithelial lesion present 01/31/2017 9:47 AM CDT [facility] at 0947 CDT RECOMMENDATION Colposcopy and/or biopsy suggested 01/31/2017 9:47 AM CDT [facility] AUTOMATED EXAMINATION Analysis of this sample has been assisted by an automated imaging and review system ([employer] System, [email or web address], [place], [place]). This case is further evaluated and finalized by a metal annealer and/or pathologist. 01/31/2017 9:47 AM CDT [facility] DISCLAIMER The PAP smear is a screening test designed to detect cancerous or precancerous cells of the uterine cervix. It is one of the best means available for detection of cervical cancer but still carries an inherent false-negative rate. The consequences of a false-negative PAP result can be minimized by adhering to current screening guidelines. The following are general guidelines recommended by the ACS, ASCP, ASCCP, and ACOG: PAP testing is recommended every three years for women 21-29, Co-Testing , a PAP test in conjunction with an HPV (Human Papillomavirus) test for women ages 30-65, and no PAP or HPV testing for women under the age of 21 or older than 65 unless clinically indicated. 01/31/2017 9:47 AM CDT [facility] Case Report Gynecologic Cytology Report Case: [id number] Authorizing Provider: Tulio Lara MD Collected: 01/24/2017 10:39 AM Ordering Location: [facility] Received: 01/24/2017 10:08 PM [facility] First Screen: Dano Cowart Pathologist: Javan Manzano MD Specimen: Cervical/Endocervi norma, liquid based thin layer preparation (Thin Prep ), CERVIX/ENDOCERVIX 01/31/2017 9:47 AM CDT [facility] HPV Reflex if ASCUS? Yes 01/31/2017 9:47 AM CDT [facility] Specimen of unknown material (specimen) CERVIX UTERI STRUCTURE / Unknown 01/24/2017 10:39 AM CDT 01/24/2017 10:08 PM CDT us Tulio Lara MD PATHOLOGY/CYTOLOGY ORDERABLES Final Result Performing Organization Address City/State/[facility] Co de Phone Number [facility] [address] [place] [address], [place] from Last 3 Months or Most Recently Relevant to Health Maintenance Insurance MEDICAID [employer] Care Teams Dry Yard Worker Relationship Specialty Start Date End Date Radha Valenzuela APRN [address] [place] [address] PCP - General Family Medicine 10/03/17 Tulio Lara MD [address] [place] [address] Consulting Physician Obstetrics & Gynecology 02/09/17
--- OUTSIDE RECORDS SUMMARY | 2024-12-31 11:24 | XMS_ITS | Continuity of Care Document ---
Author Organization [facility] Address [address] [place] [address] [place] [address] Phone Care Team Providers Care Tipple Engineer Name Role Phone Adonis Hernandez MD Unavailable Unavailable Allergies, Adverse Reactions, Alerts Substance Reaction Status Criticality tramadol Active No Information Medications Medication Instructions Dosage Effective Dates (start - stop) Status Comments buspirone 7.5 mg tablet take 1 tablet (7.5MG) by oral route 2 times every day 7.5 MG - Active Lexapro 10 mg tablet take 1 tablet (10MG ) by oral route every day 10 MG - Active Procedures Procedure Date PREV VISIT, NEW, AGE 18-39 Advance Directives Directive Yes / No Effective Date File Name No Information Encounters Encounter Description Practice Location Reason(s) For Visit Diagnoses Date Provider Providers Copied on Encounter PREV VISIT, NEW, AGE 18-39 [facility], [address] [place], [place], [id number], [place] tel:[phone] [facility] PHysical (chief complaint) Routine Medical ExamRoutine Medical Exam David Lamb. [address] [facility] [place], [place], [id number], [place]. tel:[phone] Family History Family Member Type Diagnosis Age At Onset Father Problem (finding) Unknown Disease Mother Problem (finding) Cancer -ovarian CA 35 Payers Payer name Insurance type Covered constitution party ID Authoriza tion(s) No Information Social History Type Description Quantity Date Captured Comments Alcohol Use Details Caffeine Use Details Unknown Tobacco Use Status No Information Smoking Status Current every day smoker Smoking Tobacco Use Details Cigarette: No Details Available Cigarette: 1 Packs per day Sex Female Vital Signs Date / Time: Height Weight BMI Pulse Rate Blood Pressure Temperature Respiratory Rate Body Surface Area Head Circumference BMI percentile Pulse Ox Inhaled Ox 2:30 PM 68.00 in 146.00 lbs 22.2 0 kg/m eter (2) 88 /min 123/84 mm[Hg] 98.0 F 16 /min Chief Complaint And Reason For Visit From encounter dated '04/22/2014 14:30'. PHysical (chief complaint) Plan Of Treatment Date Type Action Status Goal Tobacco cessation counseling completed Referral Ordered: Psychiatry ordered Referral Ordered: Physical Therapy ordered Referral Ordered: Referral: Psychiatry. Evaluate and treat. ordered Referral Referred To: Physical Therapy Ordered: Referral: Physical Therapy. ordered Referral Ordered: MRI LUMBAR SPINE W/O DYE ordered History Of Present Illness Encounter Date Complaint History Of Prese nt Illness No Information Instructions Date Instruction Additional Infor mation No Information Assessments Type Assessment Date No Information Mental Status Date Cognitive Assessment Orientation - [place] ed to time, place, person, situation.
--- OUTSIDE RECORDS SUMMARY | 2024-12-31 11:24 | XMS_ITS | Clinical Summary ---
Author Organization [facility] Address [address] [place] [address] Phone Care Team Providers Care Nitroglycerin Distributor Name Role Phone ReginaldoJanette pizarro PT Unavailable Unavailable Abner Velazquez MD Primary Care Provider Allergies Active Allergy Reactions Criticality Noted Date Comments Cyclobenzaprine Hives Medium 05/15/2017 Medications ipratropium (ATROVENT HFA) 17 mcg/actuation inhaler Inhale. 11/17/19 17 Active gabapentin (NEURONTIN) 300 mg capsule Take 1 capsule (300 mg total) by mouth 2 (two) times a day. 60 capsule 1 05/15/20 17 Active ergocalciferol (VITAMIN D) 50,000 unit capsule Take 1 capsule (50,000 Units total) by mouth once a week. 4 capsule 2 05/24/20 17 Active Additional Information Patient not taking.Reported on 01/26/2021 acetaminophen-code ine (TYLENOL with CODEINE #3) 300-30 mg per tabletIndications: Pain Take 1 tablet by mouth every 4 (four) hours as needed for pain (1 tablet for mild to moderate pain or 2 tablets for severe pain). 12 tablet 09/03/20 17 Active Additional Information Patient not taking.Reported on 01/26/2021 fluconazole (DIFLUCAN) 150 mg tablet Take one tablet and repeat in 3 days. 2 tablet 02/03/20 21 Active terconazole (TERAZOL 3) 0.8 % vaginal creamIndications:V ulvovaginal Candidiasis Apply topically to vulvar and vaginally opening prn for itching 30 g 02/03/20 21 Active methocarbamoL (ROBAXIN) 500 mg tablet Take 1 tablet (500 mg total) by mouth 2 (two) times a day 20 tablet 08/23/20 22 Active ibuprofen (ADVIL,MOTRIN) 600 mg tablet Take 1 tablet (600 mg total) by mouth 4 (four) times a day as needed for pain With food 15 tablet 08/23/20 22 Active buprenorphine-nalo xone (SUBOXONE) 4-1 mg per filmIndications:Op ioid Dependence,Opioid Withdrawal Symptoms,Preventio n of Opioid Abuse Place 1 Film under the tongue 2 (two) times a day for 2 days Collaborating physician Jose Cruz Mann MD note to pharmacist: Please apply to the warm handoff nathaly 4 Film 12/28/19 23 Active ondansetron ODT (ZOFRAN-ODT) 4 mg disintegrating tablet Take 1 tablet (4 mg total) by mouth every 8 (eight) hours as needed for nausea Collaborating physician Jose Cruz Mann MD 20 tablet 12/28/19 23 Active Active Problems Problem Noted Date Diagnosed Date Opioid abuse 12/27/2022 Opiate withdrawal 12/27/2022 Joint pain 05/15/2017 Fibromyalgia 05/15/2017 Immunizations Immunization Administration Dates Next Due Influenza, Quadrivalent, Spl it, Preservative Free, Intramuscular 11/10/2016 Influenza, Trivalent, IM (MDV) 10/31/2016 Pneumococcal Polysaccharide PPV23 11/10/2016 Surgical History Surgery Date Site/Laterality Comments PARTIAL HYSTERECTOMY CHOLECYSTECTOMY HYSTERECTOMY 09/17/2016 - 09/16/2017 Medical History Medical History Date Comments Asthma Hypertension Anemia Smoking Family History Medical History Relation Name Comments Arthritis Maternal Grandmother rheumat iod arthritis Cancer Maternal Grandmother Arthritis Mother rheumatoid arth ritis Ovarian cancer Paternal Grandmother Relation Name Status Comments Maternal Grandmother Mother Paternal Grandmother Social History Tobacco Use Types Packs/Day Years Used Date Smoking Tobacco: Heavy Smoker Cigarettes Smokeless Tobacco: Never Alcohol Use Standard Drinks/Week Comments Yes 0 (1 standard drink = 0.6 oz pur e alcohol) PHQ-2 Answer Date Recorded PHQ-2 Total Score (If total score is 3 or more points, staff should administer the PHQ-9) 0 01/26/2021 Personal Safety Answer Date Recorded Getting School Help Needed Not on file 01/13 Comments No Sex and Gender Information Value Date Recorded Sex Assigned at Not on file Legal Sex Female 2:44 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 Gender Identity Not on file Sexual Orientation Not on file Obstetrics History Para Term AB IAB SAB Ectopic Multiple Livin g Live Births 2 2 2 2 2 Date Outcome GA Total Labor Labor/2nd/3rd Weight Sex Type Anes PTL Julianna A1 A5 Name Clin 2 Term 3.26 kg (7 lb 3 oz) F Vag-S pont Living 9 Term 3.374 kg (7 lb 7 oz) Vag-S pont Living Last Filed Vital Signs Vital Sign Reading Time Taken Comments Blood Pressure 108/85 12/27/2022 2:19 PM CDT Pulse 98 12/27/2022 2:19 PM CDT Temperature 36.8 C (98.3 F) 12/27/2022 2:19 PM CDT Respiratory Rate 16 12/27/2022 2:19 PM CDT Oxygen Saturation 100% 12/27/2022 2:19 PM CDT Inhaled Oxygen Concentration - - Weight 67.6 kg (149 lb) 12/27/2022 2:19 PM CDT Height 172.7 cm (5' 8 ) 12/27/2022 2:19 PM CDT Body Mass Index 22.66 12/27/2022 2:19 PM CDT Plan of Treatment Health Maintenance Due Date Last Done Comments Colon Cancer Screening-Colonoscopy 1975 Hepatitis C Screening 1975 DTaP/Tdap/Td Vaccine (1 - Tdap) 12/30/1986 Hepatitis B Screening 12/30/1993 Pneumococcal vaccine <65 (2 of 2 - PCV) 11/10/2017 11/10/2016, 03/17/2014 Depression Screening 01/26/2022 01/26/2021, 07/17/20 17 Regular Well Visit/Exam 18-64 01/26/2022 01/26/2021 Breast Cancer Screening-Mammogram 03/10/2022 021 Covid-19 Vaccine (3 - 2023-2 5 season) 2024 04/04/2021, 02/21/2021 Influenza Vaccine (#1) 2024 0, 07/27/2018, 11/10/2016, Additional history exists Cervical Cancer Screening Discontinued 01/26/2021 Procedures Procedure Name Priority Date/Time Associated Diagnosis Comments DIAGNOSTIC MAMMOGRAM BILATERAL W JAZMYNE Schedule Routine, Read Routine (OP Routine) 03/10/2021 10:35 AM CDT Lump of right breast Nipple discharge PAP ONLY Routine 01/26/2021 2:15 PM CDT from Last 3 Months or Most Recently Relevant to Health Maintenance Results * DIAGNOSTIC MAMMOGRAM BILATERAL W JAZMYNE (03/10/2021 10:35 AM CDT) Anatomical Region Laterality Modality Breast Bilateral Mammography 03/10/2021 11:3 2 AM CDT Impressions 03/10/2021 11:32 AM CDT No mammographic or sonographic evidence of malignancy. Given continued bilateral nipple discharge, breast surgeon consultation is recommended. BI-RADS: 1 - Negative. Electronically signed by: MD Trevor Stevens 03/10/2021 11:32 AM CDT EXAMINATION: DIAGNOSTIC MAMMOGRAM BILATERAL W JAZMYNE, US BREAST BILATERAL LIMITED ORDERING HEALTHCARE PROVIDER: TANYA PALOMINO HISTORY: Bilateral yellowish nipple discharge for the past 20 years only present when the patient expresses. Right breast lump. COMPARISON: None TECHNIQUE: CC and MLO views of the bilateral breasts were obtained with digital technique using breast tomosynthesis with C view. Computer aided detection was utilized. Multiple targeted ultrasound images of the bilateral breasts were obtained. FINDINGS: MAMMOGRAPHIC FINDINGS DENSITY: The tissue of the breasts is extremely dense, which lowers the sensitivity of mammography. BREASTS: There are no suspicious masses, calcifications or secondary signs of malignancy within either breast. Specifically, there is no mammographic correlate for the palpable finding. ULTRASOUND FINDINGS Targeted ultrasound images of the bilateral retroareolar regions and of the palpable area in the right breast at 1:00, 5 cm from the nipple were acquired. There are mildly dilated ducts within the bilateral retroareolar regions without a focal sonographic mass. Within the area of palpable abnormality within the right breast at 1:00, 5 cm from the nipple, there is dense breast tissue without a sonographic mass. Tanya Palomino ROTARY CUTTER OPERATOR IMG MAMMO PROCEDURES Shaina l Result * Pap Only (01/26/2021 2:15 PM CDT) CLINICAL INFORMATION: Cristina Strong Comment:Hysterectomy LMP Cristina DeniseAlize Strong Comment:INFORMATION NOT PROV IDED Previous Pap Cristina DeniseEvanPrecious Strong Comment:INFORMATION NOT PROV IDED Prev. Bx Cristina DeniseEvanPrecious Strong Comment:INFORMATION NOT PROV IDED SOURCE: Cristina DeniseEvanPrecious Strong Comment:Vagina Pap, specimen adequacy Cristina DeniseEvanPrecious Strong Comment:SATISFACTORY FOR MARIA R LUATION HPV interp Cristina DeniseEvanPrecious Strong Comment:Negative for intraep ithelial lesion or malignancy. Eligibility Services Representative Que st DeniseEvanPrecious Strong Comment: KMY CT(ASCP) CT screening location: [place] [address] [address] [address] Comment Cristina HowieAlize Strong Comment: EXPLANATORY NOTE: The Pap is a screening test for cervical cancer. It is not a diagnostic test and is subject to false negative and false positive results. It is most reliable when a satisfactory sample, regularly obtained, is submitted with relevant clinical findings and history, and when the Pap result is evaluated along with historic and current clinical information. 01/26/2021 2:15 PM CDT 01/27/2021 11:04 AM CDT us Tanya Palomino ROTARY CUTTER OPERATOR LAB CYTOLOGY ORDERABLES F inal Result [facility] [place] [address] [address] [place] [address] from Last 3 Months or Most Recently Relevant to Health Maintenance Insurance [facility] Care Teams Nitroglycerin Distributor Relationship Specialty Start Date End Date Abner Velazquez MD PCP - General Family Medicine 08/23/22 Janette Hair PT Physical Therapist Physical Therapy 08/28/17
--- OUTSIDE RECORDS SUMMARY | 2024-12-31 11:24 | XMS_ITS | Referral Summary ---
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 Result [facility] Tanya Palomino NP IMG MAMMO PROCEDURES Shaina l Result * Pap Only (01/26/2021 2:15 PM CDT) CLINICAL INFORMATION: Cristina SolveBoardAlize Strong Comment:Hysterectomy LMP Cristina DeniseAlize Strong Comment:INFORMATION NOT PROV IDED Previous Pap Cristina DeniseEvanPrecious yosvany Strong Comment:INFORMATION NOT PROV IDED Prev. Bx Cristina DiagnosticsAlize Strong Comment:INFORMATION NOT PROV IDED SOURCE: Cristina HowieAlize Strong Comment:Vagina Pap, specimen adequacy Cristina HowieAlize Strong Comment:SATISFACTORY FOR MARIA R LUATION HPV interp rCistina DeniseAlize Strong Comment:Negative for intraep ithelial lesion or malignancy. Digital Sales Manager Que HowieEvanPrecious yosvany Strong Comment: KMY, CT(ASCP) CT screening location: [facility] [address] [place] [address] Comment Cristina HowieAlize Strong Comment: EXPLANATORY NOTE: [...] 2:15 PM CDT 01/27/2021 11:04 AM CDT Result [facility] Tanya Palomino NP LAB CYTOLOGY ORDERABLES F inal Result [facility] [address] [place] [phone] from Last 3 Months or Most Recently Relevant to Health Maintenance Insurance [facility] Member Subscriber Plan / Payer (Ef fective 2022-Present) Name:Yamileth Caro Relation to Subscriber:Self Name:Yamileth Caro Payer ID:[id number] (NAIC) Group ID:Not on file Type:MEDICAID RISK OTHER Address: ATTN: CLAIMS DEPT [address] [place] [id number] Care Teams Synthetic Staple Extruder Relationship Specialty Start Date End Date Abner Velazquez MD PCP - General Family Medicine 08/23/22 Janette Hair, PT Physical Therapist Physical Therapy 08/28/17
--- OUTSIDE RECORDS SUMMARY | 2024-12-31 11:24 | XMS_ITS | Continuity of Care Document ---
Author Organization [facility] Address [address] [place] [address] Phone Care Team Providers Care Band Shover Name Role Phone Erik Bliss Unavailable Unavailable Medications Medication Instructions Dosage Effective Dates (start - stop) Status Comments albuterol sulfate HFA 90 mcg/actuation aerosol inhaler inhale 1 puff by inhalation route 3 times daily - Active Advance Directives Directive Yes / No Effective Date File Name No Information Encounters Encounter Description Practice Location Reason(s) For Visit Diagnoses Date Provider Providers Copied on Encounter [facility], [address] [place] [address], [address], tel:[phone] [facility] NOT SEEN (chief complaint)D ONT TAKE HER INSURANCE (chief complaint) No Information Izaiah Erik. [address] [place], [address]. tel: [phone] Family History Family Member Type Diagnosis Age At Onset Problem (finding) Family history of Cance r, unknown Problem (finding) Family history of asthm a Payers Payer name Insurance type Covered green party [id number] Social History Type Description Quantity Date Captured Comments Alcohol Use Details wine Caffeine Use Details coffee Tobacco Use Status Heavy cigarette smok er (20-39 cigs/day) Smoking Status Heavy tobacco smoker Smoking Tobacco Use Details Cigarette: No Details Available Cigarette: 1 Packs per day Sex Female Chief Complaint And Reason For Visit From encounter dated '07/04/2016 13:47'. NOT SEEN (chief complaint) DONT TAKE HER INSURANCE (chief complaint) Reason For Referral Reason For Referral No Information History Of Present Illness Encounter Date Complaint History Of Prese nt Illness NOT SEEN DONT TAKE HER INSURANCE Functional Status Date Functional Assessmen t No Information Instructions Date Instruction Additional Infor mation No Information Assessments Type Assessment Date No Information Patient Care Teams Name Effective Dates (start - stop) Status Members No Information
--- OUTSIDE RECORDS SUMMARY | 2024-12-31 11:24 | XMS_ITS | Patient Health Record ---
Author Organization [facility] Address [address] [place] [address] Care Team Providers Care Melt House Drag Operator Name Role Phone Bala Hopkins Primary Care Provider Allergies Allergen (clinical drug ingredient) Drug/Non Drug Allergy documented on EMR Reaction Allergy Type Onset Date Status cyclobenzaprine Cyclobenzaprine hives Drug Allergy Active Reason For Referral No Information Medications Medication SIG (Take, Route, Frequency, Duration) Notes Start Date End Date Status Ondansetron 4 MG 1 tablet on the tong ue and allow to dissolve Orally Once a day for 30 day(s) Active Buprenorphine HCl-Naloxone HCl 4-1 MG 1 film under the tongue and allow to dissolve Sublingual three times daily 01/03/2023 Active Social History Tobacco Use: Social History Observation Description Date Details (start date - stop date) Current Smoker NA - NA Sex Assigned At : Social History Observation Description Sex Assigned At Female Dont use, Tobacco Use/Smoking Question Answer Notes Are you a current every day smoker Additional Findings: Tobacco User Moderate cigar ette smoker (10-19 cigs/day) Problems Problem Type SNOMED Code ICD Code Onset Dates Problem Status W/U Status Risk Notes Problem Tobacco user (004335044) Nicotine dependence, unspecified, uncomplicated (F17.200) Active confirmed Problem Opioid use disorder (3360964888) Opioid use disorder (F11.99) Active confirmed Plan Of Treatment No Information Insurance Providers Payer Name Payer Address Payer Phone Subscriber Number Group Number Insured Name Patient Relationship to Insured Coverage Start Date Coverage End Date [facility] Att Claims Department [address] [place] [address] [phone] [facility] [id number] Yamileth Ferrer Self - patient is the insured 3 Medical (General) History Medical History History ICD Code OUD MDD Surgical History Surgery Date(Month/Year) HYSTERECTOMY cholecystectomy Hospitalization History Reason Date(Month/Year) hysterectomy Cholecystectomy
--- OUTSIDE RECORDS SUMMARY | 2024-12-31 11:24 | XMS_ITS | Clinical Summary ---
Author Organization [facility] Address [facility] [place] [address] Care Team Providers Care Community Representative Name Role Phone Abner Velazquez MD Primary Care Provider Allergies Active Allergy Reactions Criticality Noted Date Comments Cyclobenzaprine Hives High 11/21/2016 Tramadol Nausea Only,Unknown 08/29/2018 Medications albuterol sulfate HFA 108 (90 Base) MCG/ACT inhaler albuterol sulfate HFA 90 mcg/actuation aerosol inhaler inhale 2 puffs Active Active Problems Problem Noted Date Diagnosed Date Pyelonephritis 10/09/2024 Asthma (HHS/HCC) 08/18/2024 Opioid abuse 12/27/2022 Fibromyalgia 05/15/2017 Encounters Date Type Department Care Team Description 10/09/2024 12:45 PM REFERRAL SPECIALIST - 10/10/2024 11:50 AM [facility] Hospital Encounter [facility] [address] [facility] [place] [address] Boris Luciano, Soledad Mullen MD Abdominal Pain; Flank Pain Discharge Disposition: Home or Self Care (Routine Discharge) 10/09/2024 Travel from Last 3 Months Social History Tobacco Use Types Packs/Day Years Used Date Smoking Tobacco: Every Day Smokeless Tobacco: Never [facility] Utilities Answer Date Recorded In the past 12 months has e electric, gas, oil, or water company threatened to shut off services in your home? No 10/09/2024 Humiliation, Afraid, Rape, and Kick questionnair e Answer Date Recorded Within the last year, have y ou been afraid of your partner or ex-partner? No 10/09/2024 Within the last year, have y ou been humiliated or emotionally abused in other ways by your partner or ex-partner? No Within the last year, have y ou been kicked, hit, slapped, or otherwise physically hurt by your partner or ex-partner? No 10/09/2024 Within the last year, have y ou been raped or forced to have any kind of sexual activity by your partner or ex-partner? No 10/09/2024 Overall Financial Resource Strain (CARDIA) Answe r Date Recorded How hard is it for you to pa y for the very basics like food, housing, medical care, and heating? Not very hard 10/09/2024 Hunger Vital Sign Answer Date Recorded Within the past 12 months, y ou worried that your food would run out before you got the money to buy more. Never true 10/09/19 25 Within the past 12 months, t he food you bought just didn't last and you didn't have money to get more. Never true 10/09/2024 PRAPARE - Transportation Answer Date Re corded In the past 12 months, has l ack of transportation kept you from medical appointments or from getting medications? No 09/18 In the past 12 months, has l ack of transportation kept you from meetings, work, or from getting things needed for daily living? No 10/09/2024 Housing Stability Vital Sign Answer Tiago e Recorded In the last 12 months, was t here a time when you were not able to pay the mortgage or rent on time? No 10/09/2024 In the past 12 months, how m any times have you moved where you were living? 0 10/09/2024 At any time in the past 12 m [facility], were you homeless or living in a alf (including now)? No 10/09/2024 Comments No Sex and Gender Information Value Date Recorded Sex Assigned at Female 10/09/2024 1:13 PM REFERRAL SPECIALIST Legal Sex Female 10:19 AM CDT Gender Identity Not on file Sexual Orientation Not on file Last Filed Vital Signs Vital Sign Reading Time Taken Comments Blood Pressure 112/76 10/10/2024 8:55 AM REFERRAL SPECIALIST Pulse 89 10/10/2024 8:55 AM REFERRAL SPECIALIST Temperature 36.5 C (97.7 F) 10/10/2024 5:05 AM REFERRAL SPECIALIST Respiratory Rate 16 10/10/2024 8:55 AM REFERRAL SPECIALIST Oxygen Saturation 98% 10/10/2024 8:55 AM REFERRAL SPECIALIST Inhaled Oxygen Concentration - - Weight 54.7 kg (120 lb 8 oz) 10/10/2024 5:05 AM REFERRAL SPECIALIST Height 172.7 cm (5' 8 ) 10/09/2024 4:53 PM REFERRAL SPECIALIST Body Mass Index 18.32 10/09/2024 4:53 PM REFERRAL SPECIALIST Plan of Treatment Health Maintenance Due Date Last Done Comments Colorectal Cancer Screening Colonoscopy (10 Years) 1975 Annual Physical 12/30/1978 DTaP, Tdap and Td Vaccines ( 1 - Tdap) 12/30/1994 Hepatitis B Vaccines (1 of 3 - 19+ 3-dose series) 12/30/1994 Pneumococcal Vaccine: Pediatrics (0 to 5 Years) and At-Risk Patients (6 to 49 Years) (2 of 2 - PCV) 11/10/2017 11/10/2016 Mammogram Screening 03/10/2023 03/10/2021 COVID-19 Vaccine (3 - 2023-2 5 season) 2024 04/04/2021, 02/21/2021 Hepatitis C Completed 05/18/2017 Meningococcal B Vaccine Aged Out No l onger eligible based on patient's age to complete this topic Meningococcal Vaccine Aged Out No mio yaritza eligible based on patient's age to complete this topic RSV Immunizations Under 20 Months Aged Out No longer eligible b ased on patient's age to complete this topic Procedures Procedure Name Priority Date/Time Associated Diagnosis Comments COMPREHENSIVE METABOLIC PANEL Routine 10/10/2024 5:04 AM REFERRAL SPECIALIST CBC W/DIFF AUTOMATED Routine 10/10/2024 5:04 AM REFERRAL SPECIALIST HC URINALYSIS AUTO W/MICRO STAT 10/09/2024 2:37 PM REFERRAL SPECIALIST LIPASE STAT 10/09/2024 1:27 PM REFERRAL SPECIALIST AMYLASE STAT 10/09/2024 1:27 PM REFERRAL SPECIALIST COMPREHENSIVE METABOLIC PANEL STAT 10/09/2024 1:27 PM REFERRAL SPECIALIST CBC W/DIFF AUTOMATED STAT 10/09/2024 1:[address] ABD+PEL KIDNEY STONE STAT 10/09/2024 1:24 PM REFERRAL SPECIALIST from Last 3 Months Results * (ABNORMAL) COMPREHENSIVE METABOLIC PANEL (10/10/2024 5:04 AM REFERRAL SPECIALIST) Only the most recent of2 resultswithin the time period is included. SODIUM S/P/B 138 136 - 145 MMOL/L 10/10/2024 6:17 AM [facility] POTASSIUM S/P/B 3.3(L) 3.5 - 5.1 MMOL/L 10/10/2024 6:17 AM [facility] CHLORIDE S/P/B 98 98 - 107 MMOL/L 10/10/2024 6:17 AM [facility] CO2 30.1 21.0 - 32.0 MMOL/L 10/10/2024 6:17 AM [facility] GLUCOSE 114(H) 70 - 99 MG/DL 10/10/2024 6:17 AM [facility] Comment: FASTING GLUCOSE 100 TO 125 MG/DL IS CONSISTENT WITH IMPAIRED FASTING GLUCOSE. FASTING GLUCOSE >125 MG/DL IS CONSISTENT WITH DIABETES. RANDOM GLUCOSE >200 MG/DL WITH HYPERGLYCEMIC SYMPTOMS IS CONSISTENT WITH DIABETES. PER ADA GUIDELINES BUN 21 6 - 24 MG/DL 10/10/2024 6:17 AM [facility] CREATININE S/P/B 0.86 0.55 - 1.02 MG/DL 10/10/2024 6:17 AM [facility] CALCIUM S/P/B 8.3(L) 8.4 - 10.5 MG/DL 10/10/2024 6:17 AM [facility] BILIRUBIN TOTAL S/P/B 0.3 0.2 - 1.0 MG/DL 10/10/2024 6:17 AM [facility] Comment: THIS ASSAY IS NOT RECOMMENDED FOR PATIENTS UNDERGOING TREATMENT WITH ELTROMBOPAG DUE TO THE POTENTIAL FOR FALSELY ELEVATED RESULTS. ALKALINE PHOSPHATASE S/P/B 92 39 - 100 U/L 10/10/2024 6:17 AM [facility] AST 23 15 - 37 U/L 10/10/2024 6:17 AM [facility] ALT 31 14 - 59 U/L 10/10/2024 6:17 AM [facility] TOTAL PROTEIN S/P/B 6.9 6.4 - 8.2 G/DL 10/10/2024 6:17 AM [facility] ALBUMIN S/P/B 2.9(L) 3.4 - 5.0 G/DL 10/10/2024 6:17 AM [facility] ANION GAP 9.9 5.0 - 15.0 MMOL/L 10/10/2024 6:17 AM [facility] OSMOLALITY (CALC) 290 MOSM/KG 025 6:17 AM [facility] Comment:REFERENCE RANGE NOT ESTABLISHED GFR ESTIMATE 83(L) >89 ML/MIN/1. 73 M2 10/10/2024 6:17 AM [facility] GFR NOTES GFR REFERENCE S: 10/10/2024 6:17 AM [facility] Comment: THE ESTIMATED GFR IS CALCULATED USING THE 2020 CKD-EPI EQUATION. THE FOLLOWING CATEGORIES FOR GRADING RENAL FUNCTION ARE RECOMMENDED BY THE INTERNATIONAL SOCIETY OF NEPHROLOGY (KDIGO 2012 CLINICAL PRACTICE GUIDELINE). G1,NORMAL OR HIGH: >89 ml/min/1.73 m2 G2,MILDLY DECREASED: 60-89 ml/min/1.73 m2 G3A,MILDLY TO MODERATELY DECREASED: 45-59 ml/min/1.73 m2 G3B,MODERATELY TO SEVERELY DECREASED: 30-44 ml/min/1.73 m2 G4,SEVERELY DECREASED: 15-29 ml/min/1.73 m2 G5,KIDNEY FAILURE: <15 ml/min/1.73 m2 10/10/2024 5:04 AM REFERRAL SPECIALIST us Shirin Waldron NP LABORATORY Final Result [facility] [address] [place] [address], * (ABNORMAL) CBC W/DIFF AUTOMATED (10/10/2024 5:04 AM REFERRAL SPECIALIST) Only the most recent of2 resultswithin the time period is included. WBC 13.52(H) 4.00 - 10.80 x10'3/uL 10/10/2024 5:49 AM [facility] RBC 3.89(L) 4.10 - 5.40 x10'6/uL 10/10/2024 5:49 AM [facility] HGB 12.0 12.0 - 16.0 G/DL 10/10/2024 5:49 AM [facility] HCT 35.4(L) 36.0 - 47.0 % 10/10/2024 5:49 AM [facility] MCV 91.0 78.0 - 100.0 FL 10/10/2024 5:49 AM [facility] MCH 30.8 27.0 - 31.0 PG 10/10/2024 5:49 AM [facility] MCHC 33.9 33.0 - 36.0 G/DL 10/10/2024 5:49 AM [facility] RDW 12.1 11.5 - 14.5 % 10/10/2024 5:49 AM [facility] PLT 213 150 - 350 x10'3/uL 10/10/2024 5:49 AM [facility] MPV 10.0 7.4 - 10.4 FL 10/10/2024 5:49 AM [facility] CBC COMMENT NORMAL REFERENCE RANGE NOT ESTABLISHED FOR THE PROPORTIONAL LEUKOCYTE DIFFERENTIAL. 10/10/2024 5:49 AM [facility] SEG NEUTROPHILS 72 % 6:43 AM [facility] LYMPHOCYTES 15 % 10/10/2024 6:43 AM [facility] MONOCYTES 13 % 10/10/2024 6:43 AM [facility] ABS SEGMENTED NEUTS 9.73(H) 1.60 - 8.30 x10'3/uL 10/10/2024 6:43 AM REFERRAL SPECIALIST [facility] ABS. LYMPHOCYTES 2.03 0.80 - 4.70 x10'3/uL 10/10/2024 6:43 AM REFERRAL SPECIALIST [facility] ABS. MONOCYTES 1.76(H) 0.10 - 1.50 x10'3/uL 10/10/2024 6:43 AM [facility] PLT MORPH. NORMAL 10/10/2024 6:43 AM REFERRAL SPECIALIST [facility] RBC MORPHOLOGY 1+ 10/10/2024 6:43 AM REFERRAL SPECIALIST [facility] Comment:POIKILOCYTOSIS 10/10/2024 5:04 AM REFERRAL SPECIALIST us Shirin Waldron NP LABORATORY Final Result [facility] [employer] [place] [address], * (ABNORMAL) URINALYSIS (10/09/2024 2:37 PM REFERRAL SPECIALIST) COLOR (U) YELLOW 10/09/2024 3:01 PM [facility] TRANSPARENCY CLEAR 10/09/2024 3:01 PM [facility] SPECIFIC GRAVITY (U) 1.020 1.000 - 1.025 10/09/2024 3:01 PM [facility] U PH 5.5 5.0 - 8.0 10/09/2024 3:01 PM [facility] LEUKOCYTES (U) NEGATIVE NEGATIVE 10/09/2024 3:01 PM [facility] NITRITES POSITIVE(A) NEGATIVE 10/09/2024 3:01 PM [facility] PROTEIN RANDOM (U) 2+(A) NEGATIVE 10/09/2024 3:01 PM [facility] GLUCOSE (U) NEGATIVE NEGATIVE 10/09/2024 3:01 PM [facility] KETONES MG/DL (U) NEGATIVE NEGATIVE 10/09/2024 3:01 PM [facility] UROBILINOGEN 1.0(H) <1.0 EU/DL 10/09/2024 3:01 PM REFERRAL SPECIALIST [facility] BILIRUBIN (U) NEGATIVE NEGATIVE 10/09/2024 3:01 PM REFERRAL SPECIALIST [facility] BLOOD (U) 3+(A) NEGATIVE 10/09/2024 3:01 PM REFERRAL SPECIALIST [facility] WBC/HPF 0-5 0 - 5 /HPF 10/09/2024 3:01 PM REFERRAL SPECIALIST [facility] RBC/HPF FILLED FIELD(A) 0 - 5 /HPF 10/09/2024 3:01 PM REFERRAL SPECIALIST [facility] EPI/LPF 5-10 /LPF 10/09/2024 3:01 PM REFERRAL SPECIALIST [facility] BACTERIA (U) 2+ /HPF 10/09/2024 3:01 PM [facility] COMMENT (U) FIELD FILLED RED CELLS CRITICAL VALUE CALLED TO RAJNI MARTINEZ AT 1501 BY SUZETTE PRUETTER 10/09/2024 3:01 PM REFERRAL SPECIALIST [facility] URINE SPECIMEN OBTAINED BY CLEAN CATCH PROCEDURE / Unknown 10/09/2024 2:37 PM REFERRAL SPECIALIST us Boris Luciano DO URINE ORDERABLES Final Resul t Performing Organization Address City/[facility]/[place] [address], [place] [phone] * (ABNORMAL) AMYLASE (10/09/2024 1:27 PM REFERRAL SPECIALIST) AMYLASE S/P/B 23(L) 25 - 115 UNITS/L 10/09/2024 1:53 PM REFERRAL SPECIALIST [facility] 10/09/2024 1:27 PM REFERRAL SPECIALIST us Boris Luciano DO LABORATORY Final Result Performing Organization Address City/[facility]/ZIP Co de Phone Number [address] [address], [place] [phone] * (ABNORMAL) LIPASE (10/09/2024 1:27 PM REFERRAL SPECIALIST) LIPASE 12(L) 16 - 77 UNITS/L 10/09/2024 1:53 PM REFERRAL SPECIALIST [facility] 10/09/2024 1:27 PM REFERRAL SPECIALIST us Boris Luciano DO LABORATORY Final Result [facility] [address] [place] [address], * CT ABD+PEL KIDNEY STONE (10/09/2024 1:24 PM REFERRAL SPECIALIST) Anatomical Region Laterality Modality Abdomen Computed Tomogra phy 10/09/2024 1:36 PM REFERRAL SPECIALIST Impressions 10/09/2024 1:46 PM REFERRAL SPECIALIST IMPRESSION: 1. Perinephric stranding on the right raising the question of pyelonephritis. Clinical correlation required. 2. Otherwise, no acute intra-abdominal or intrapelvic process identified. 3. Moderate to large amount stool in the colon. 4. Additional chronic/nonurgent findings as described. Ordered By: BORIS LUCIANO Interpreted By: Ethan Greenberg MD, 10/09/2024 1:36 PM Narrative 10/09/2024 1:46 PM REFERRAL SPECIALIST [address] [place] [address] Examination: CT of the abdomen and pelvis without contrast. Exam time: 1326 hours. Clinical history: Right-sided pain. Nausea. Prior cholecystectomy and hysterectomy. Comparison: None. Technique: Spiral scanning was performed through the abdomen and pelvis without contrast. Sagittal and coronal reconstructions were performed from the data set. A dose lowering technique was used for this procedure, which may include, but is not limited to, dose reduction techniques, automated exposure control, the use of iterative reconstruction and ALARA/Image Gently techniques. Findings: There is minor dependent subsegmental atelectasis. The lung bases are otherwise clear. No pleural effusions are seen. Cholecystectomy is evident with clips in the gallbladder fossa. There is mild biliary ductal prominence compatible with postcholecystectomy reservoir effect. The liver, spleen, pancreas and adrenal glands are otherwise unremarkable for the noncontrast technique. 1.4 cm cyst in the lower pole of the left kidney requires no further workup or surveillance. No urinary tract calculi or signs of obstructive uropathy are identified. Pelvic phleboliths are noted. The kidneys are otherwise intrinsically unremarkable for the noncontrast technique. There is mild perinephric stranding on the right which could reflect pyelonephritis. Clinical correlation is required. The urinary bladder is nearly empty. The uterus is not identified, compatible with the history. A normal- appearing appendix is visible (coronal images 52-61 for example). There is a moderate to large amount of stool in the colon. There is no ascites, lymphadenopathy or bowel distention. The caliber of the abdominal aorta is normal. There is atherosclerotic calcification of the aorta, renal and iliac arteries. Procedure Note Ethan Greenberg MD - 10/09/[address] [place] [address] Examination: CT of the abdomen and pelvis without contrast. Exam time: 1326 hours. Clinical history: Right-sided pain. Nausea. Prior cholecystectomy andhysterectomy. Comparison: None. Technique: Spiral scanning was performed through the abdomen and pelviswithout contrast. Sagittal and coronal reconstructions were performed fromthe data set. A dose lowering technique was used for this procedure,which may include, but is not limited to, dose reduction techniques,automated exposure control, the use of iterative reconstruction andALARA/Image Gently techniques. Findings: There is minor dependent subsegmental atelectasis. The lungbases are otherwise clear. No pleural effusions are seen. Cholecystectomyis evident with clips in the gallbladder fossa. There is mild biliaryductal prominence compatible with postcholecystectomy reservoir effect.The liver, spleen, pancreas and adrenal glands are otherwise unremarkablefor the noncontrast technique. 1.4 cm cyst in the lower pole of the leftkidney requires no further workup or surveillance. No urinary tractcalculi or signs of obstructive uropathy are identified. Pelvicphleboliths are noted. The kidneys are otherwise intrinsicallyunremarkable for the noncontrast technique. There is mild perinephricstranding on the right which could reflect pyelonephritis. Clinicalcorrelation is required. The urinary bladder is nearly empty. The uterusis not identified, compatible with the history. A normal- appearingappendix is visible (coronal images 52-61 for example). There is amoderate to large amount of stool in the colon. There is no ascites,lymphadenopathy or bowel distention. The caliber of the abdominal aorta isnormal. There is atherosclerotic calcification of the aorta, renal andiliac arteries. IMPRESSION: 1. Perinephric stranding on the right raising the question ofpyelonephritis. Clinical correlation required. 2. Otherwise, no acute intra-abdominal or intrapelvic processidentified. 3. Moderate to large amount stool in the colon. 4. Additional chronic/nonurgent findings as described. Ordered By: BORIS LUCIANO Interpreted By: Ethan Greenberg MD, 10/09/2024 1:36 PM Boris Luciano DO CT Final Result from Last 3 Months Insurance [employer] Advance Directives * Full Code (Latest Code Status on File) Date Activated Date Inactivated Comments 10/09/2024 5:05 PM 10/10/2024 2:00 PM Care Teams Community Representative Relationship Specialty Start Date End Date Abner Velazquez MD [address] [place] [phone] PCP - General FAMILY PRACTICE 01/29/21
[2024-12-31 11:25] LABS: Alanine Aminotransferase 32 U/L (14-59); Albumin Level 3.9 g/dL (3.4-5.0); Alkaline Phosphatase 115 U/L (46-116); Anion Gap 8 mmol/L (4-12); Aspartate Amino Transferase 20 U/L (15-37); Bilirubin,Total 0.3 mg/dL (0.00-1.00); Blood Urea Nitrogen 14 mg/dL (7-18); Calcium 9.1 mg/dL (8.5-10.1); Carbon Dioxide 30 mmol/L (21-32); Chloride 105 mmol/L (98-108); Creatine Kinase 203 U/L (26-192); Estimated CRCL calculation 58 ml/min; Estimated Glomerular Filt Rate > 60; Glucose 119 mg/dL (70-99); Lactic Acid Reflex 0.7 mmol/L (0.4-2.0); Osmolality Calculated 297 mOsm/kg (285-295); Potassium 3.9 mmol/L (3.5-5.1); Sodium 143 mmol/L (136-145); Total Protein 7.5 g/dL (6.4-8.2)
[2024-12-31 11:28] LABS: Troponin I < 4.0 ng/L (0.00-60.4)
[2024-12-31 11:37] LABS: Add Urine Microscopic? YES; Appearance Urine Sl Cloudy (Clear); Bilirubin Urine Negative (Negative); Blood Urine Trace-intact (Negative); Color Urine Yellow (Yellow); Glucose Urine UA Negative (Negative); Ketones Urine Trace (Negative); Leukocyte Esterase Ur Trace LEU/UL (Negative); Nitrate Urine Positive (Negative); Protein Urine 2+ (Negative); Specific Grav Ur >= 1.030 (1.010-1.020); Urobilinogen Urine 0.2 mg/dL (0.2-1.0); pH Urine 5.5 (5.0-8.0)
[2024-12-31 11:42] LABS: RBC Urine None seen /hpf (0-2); Squamous Epithelial Cell Urine Few /hpf (Few)
[2024-12-31 11:43] LABS: Bacteria Urine 3+ /hpf
--- OUTSIDE RECORDS SUMMARY | 2024-12-31 12:05 | XMS_ITS | Clinical Summary ---
Author Organization [facility] Address [address] [place] [address] Phone Care Team Providers Care Block Cableman Name Role Phone ReginaldoJanette pizarro PT Unavailable Unavailable Abenr Velazquez MD Primary Care Provider [phone] Allergies Active Allergy Reactions Criticality Noted Date [...] on file Legal Sex Female 2:44 AM LABORER HEADING Gender Identity Not on file Sexual Orientation [...] tissue without a sonographic mass. Tanya Palomino METAL TRADES INSTRUCTOR IMG MAMMO PROCEDURES Shaina l Result * [...] Comment:Negative for intraep ithelial lesion or malignancy. Career Education Teacher Que st DeniseEvanPrecious Strong Comment: KMY CT(ASCP) CT screening location: [place] [address] Administration [place] [address] Comment Cristina HowieAlize Strong Comment: EXPLANATORY NOTE: [...] 01/27/2021 11:04 AM CDT us Tanya Palomino METAL TRADES INSTRUCTOR LAB CYTOLOGY ORDERABLES F inal Result [facility] [place] [address] [address] [place] [phone] from Last 3 Months or Most Recently Relevant to Health Maintenance Insurance [facility] Care Teams Block Cableman Relationship Specialty Start Date End Date Abner Velazquez MD PCP - General Family Medicine 08/23/22 Janette Hair PT Physical Therapist Physical Therapy 08/28/17
--- OUTSIDE RECORDS SUMMARY | 2024-12-31 12:05 | XMS_ITS | Encounter Summary ---
Author Organization [facility] Healthcare Address [address] [place] [address] Care Team Providers Care Mems Engineer Name Role Phone Janette Hair PT Unavailable Unavailable Radha Valenzuela NP Primary Care Provider + [phone] Abner Velazquez MD Primary Care Provider [phone]- [phone] Reason for Visit * Reason Onset Date Comments Scheduling Appointments 02/07/2021 Confirim ing mammogram appt Encounter Details Date Type Department Care Team (Late st Contact Info) Description 02/07/2021 Telephone [facility] [address] [place] [address] Shelley Baez, Scheduling Appointments ( Confiriming mammogram [...] on file Legal Sex Female 2:44 AM 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
--- OUTSIDE RECORDS SUMMARY | 2024-12-31 12:05 | XMS_ITS | Referral Summary ---
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 Result [facility] Tanya Palomino NP IMG MAMMO PROCEDURES Shaina l Result * Pap Only (01/26/2021 2:15 PM CDT) CLINICAL INFORMATION: Cristina MoqomAlize Strong Comment:Hysterectomy LMP Cristina DeniseAlize Strong Comment:INFORMATION NOT PROV IDED Previous Pap Cristina DeniseEvanPrecious yosvany Strong Comment:INFORMATION NOT PROV IDED Prev. Bx Cristina DiagnosticsAlize Strong Comment:INFORMATION NOT PROV IDED SOURCE: Cristina HowieAlize Strong Comment:Vagina Pap, specimen adequacy Cristina HowieAlize Strong Comment:SATISFACTORY FOR MARIA R LUATION HPV interp Cristina DeniseAlize Strong Comment:Negative for intraep ithelial lesion or malignancy. Lead Sprinkler Que HowieEvanPrecious yosvany Strong Comment: KMY, CT(ASCP) CT screening location: [facility] [place] [address] Comment Cristina HowieAlize Strong Comment: EXPLANATORY NOTE: [...] PM CDT 01/27/2021 11:04 AM CDT Result [facility] Tanya Palomino NP LAB CYTOLOGY ORDERABLES F inal Result [facility] [address] [place] [phone] from Last 3 Months or Most Recently Relevant to Health Maintenance Insurance [facility] Member Subscriber Plan / Payer (Ef fective 2022-Present) Name:Yamileth Caro Relation to Subscriber:Self Name:Yamileth Caro Payer ID:[id number] (NAIC) Group ID:Not on file Type:MEDICAID RISK OTHER Address: ATTN: CLAIMS DEPT [address] [place] [id number] Care Teams Product Management Internship Relationship Specialty Start Date End Date Abner Velazquez MD PCP - General Family Medicine 08/23/22 Janette Hair, PT Physical Therapist Physical Therapy 08/28/17
--- OUTSIDE RECORDS SUMMARY | 2024-12-31 12:05 | XMS_ITS | Encounter Summary ---
Author Organization 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
--- OUTSIDE RECORDS SUMMARY | 2024-12-31 12:05 | XMS_ITS | Clinical Summary ---
Author Organization [facility] Address [facility] [place] [address] Care Team Providers Care Probate Judge Name Role Phone Abner Velazquez MD Primary [...] Department Care Team Description 10/09/2024 12:45 PM GREEN ENERGY MARKETING ANALYST - 10/10/2024 11:50 AM [facility] Hospital Encounter [place] [facility] [address] [place] [address] Boris Luciano, Soledad Mullen MD Abdominal Pain; Flank Pain Discharge Disposition: Home or Self Care (Routine Discharge) 10/09/2024 Travel from Last 3 Months Social History Tobacco Use Types Packs/Day Years Used Date Smoking Tobacco: Every Day Smokeless Tobacco: Never [facility] Utilities Answer Date Recorded In the past [...] any time in the past 12 m [facility], were you homeless or living in a senior care (including now)? No 10/09/2024 Comments No Sex and Gender Information Value Date Recorded Sex Assigned at Female 10/09/2024 1:13 PM GREEN ENERGY MARKETING ANALYST Legal Sex Female 10:19 AM CDT Gender Identity Not on file Sexual Orientation Not on file Last Filed Vital Signs Vital Sign Reading Time Taken Comments Blood Pressure 112/76 10/10/2024 8:55 AM GREEN ENERGY MARKETING ANALYST Pulse 89 10/10/2024 8:55 AM GREEN ENERGY MARKETING ANALYST Temperature 36.5 C (97.7 F) 10/10/2024 5:05 AM GREEN ENERGY MARKETING ANALYST Respiratory Rate 16 10/10/2024 8:55 AM GREEN ENERGY MARKETING ANALYST Oxygen Saturation 98% 10/10/2024 8:55 AM GREEN ENERGY MARKETING ANALYST Inhaled Oxygen Concentration - - Weight 54.7 kg (120 lb 8 oz) 10/10/2024 5:05 AM GREEN ENERGY MARKETING ANALYST Height 172.7 cm (5' 8 ) 10/09/2024 4:53 PM GREEN ENERGY MARKETING ANALYST Body Mass Index 18.32 10/09/2024 4:53 PM GREEN ENERGY MARKETING ANALYST Plan of Treatment Health Maintenance Due Date [...] COMPREHENSIVE METABOLIC PANEL Routine 10/10/2024 5:04 AM GREEN ENERGY MARKETING ANALYST CBC W/DIFF AUTOMATED Routine 10/10/2024 5:04 AM GREEN ENERGY MARKETING ANALYST HC URINALYSIS AUTO W/MICRO STAT 10/09/2024 2:37 PM GREEN ENERGY MARKETING ANALYST LIPASE STAT 10/09/2024 1:27 PM GREEN ENERGY MARKETING ANALYST AMYLASE STAT 10/09/2024 1:27 PM GREEN ENERGY MARKETING ANALYST COMPREHENSIVE METABOLIC PANEL STAT 10/09/2024 1:27 PM GREEN ENERGY MARKETING ANALYST CBC W/DIFF AUTOMATED STAT 10/09/2024 1:27 PM GREEN ENERGY MARKETING ANALYST CT ABD+PEL KIDNEY STONE STAT 10/09/2024 1:24 PM GREEN ENERGY MARKETING ANALYST from Last 3 Months Results * (ABNORMAL) COMPREHENSIVE METABOLIC PANEL (10/10/2024 5:04 AM GREEN ENERGY MARKETING ANALYST) Only the most recent of2 resultswithin the time period is included. SODIUM S/P/B 138 136 - 145 MMOL/L 10/10/2024 6:17 AM [facility] POTASSIUM S/P/B 3.3(L) 3.5 - 5.1 MMOL/L 10/10/2024 6:17 AM [facility] CHLORIDE S/P/B 98 98 - 107 MMOL/L 10/10/2024 6:17 AM [facility] CO2 30.1 21.0 - 32.0 MMOL/L 10/10/2024 6:17 AM [facility] GLUCOSE 114(H) 70 - 99 MG/DL 10/10/2024 6:17 AM [facility] Comment: FASTING GLUCOSE 100 TO 125 MG/DL IS CONSISTENT WITH IMPAIRED FASTING GLUCOSE. FASTING GLUCOSE >125 MG/DL IS CONSISTENT WITH DIABETES. RANDOM GLUCOSE >200 MG/DL WITH HYPERGLYCEMIC SYMPTOMS IS CONSISTENT WITH DIABETES. PER ADA GUIDELINES BUN 21 6 - 24 MG/DL 10/10/2024 6:17 AM [facility] CREATININE S/P/B 0.86 0.55 - 1.02 MG/DL 10/10/2024 6:17 AM [facility] CALCIUM S/P/B 8.3(L) 8.4 - 10.5 MG/DL 10/10/2024 6:17 AM [facility] BILIRUBIN TOTAL S/P/B 0.3 0.2 - 1.0 MG/DL 10/10/2024 6:17 AM [facility] Comment: THIS ASSAY IS NOT RECOMMENDED FOR PATIENTS UNDERGOING TREATMENT WITH ELTROMBOPAG DUE TO THE POTENTIAL FOR FALSELY ELEVATED RESULTS. ALKALINE PHOSPHATASE S/P/B 92 39 - 100 U/L 10/10/2024 6:17 AM [facility] AST 23 15 - 37 U/L 10/10/2024 6:17 AM [facility] ALT 31 14 - 59 U/L 10/10/2024 6:17 AM [facility] TOTAL PROTEIN S/P/B 6.9 6.4 - 8.2 G/DL 10/10/2024 6:17 AM [facility] ALBUMIN S/P/B 2.9(L) 3.4 - 5.0 G/DL 10/10/2024 6:17 AM [facility] ANION GAP 9.9 5.0 - 15.0 MMOL/L 10/10/2024 6:17 AM [facility] OSMOLALITY (CALC) 290 MOSM/KG 025 6:17 AM [facility] Comment:REFERENCE RANGE NOT ESTABLISHED GFR ESTIMATE 83(L) >89 ML/MIN/1. 73 M2 10/10/2024 6:17 AM [facility] GFR NOTES GFR REFERENCE S: 10/10/2024 6:17 AM [facility] Comment: THE ESTIMATED GFR IS CALCULATED [...] FAILURE: <15 ml/min/1.73 m2 10/10/2024 5:04 AM GREEN ENERGY MARKETING ANALYST us Shirin Waldron NP LABORATORY Final Result [facility] [address] [place] [address], * (ABNORMAL) CBC W/DIFF AUTOMATED (10/10/2024 5:04 AM GREEN ENERGY MARKETING ANALYST) Only the most recent of2 resultswithin the time period is included. WBC 13.52(H) 4.00 - 10.80 x10'3/uL 10/10/2024 5:49 AM [facility] RBC 3.89(L) 4.10 - 5.40 x10'6/uL 10/10/2024 5:49 AM [facility] HGB 12.0 12.0 - 16.0 G/DL 10/10/2024 5:49 AM [facility] HCT 35.4(L) 36.0 - 47.0 % 10/10/2024 5:49 AM [facility] MCV 91.0 78.0 - 100.0 FL 10/10/2024 5:49 AM [facility] MCH 30.8 27.0 - 31.0 PG 10/10/2024 5:49 AM [facility] MCHC 33.9 33.0 - 36.0 G/DL 10/10/2024 5:49 AM [facility] RDW 12.1 11.5 - 14.5 % 10/10/2024 5:49 AM [facility] PLT 213 150 - 350 x10'3/uL 10/10/2024 5:49 AM [facility] MPV 10.0 7.4 - 10.4 FL 10/10/2024 5:49 AM [facility] CBC COMMENT NORMAL REFERENCE RANGE NOT ESTABLISHED FOR THE PROPORTIONAL LEUKOCYTE DIFFERENTIAL. 10/10/2024 5:49 AM [facility] SEG NEUTROPHILS 72 % 6:43 AM [facility] LYMPHOCYTES 15 % 10/10/2024 6:43 AM [facility] MONOCYTES 13 % 10/10/2024 6:43 AM [facility] ABS SEGMENTED NEUTS 9.73(H) 1.60 - 8.30 x10'3/uL 10/10/2024 6:43 AM GREEN ENERGY MARKETING ANALYST [facility] ABS. LYMPHOCYTES 2.03 0.80 - 4.70 x10'3/uL 10/10/2024 6:43 AM GREEN ENERGY MARKETING ANALYST [facility] ABS. MONOCYTES 1.76(H) 0.10 - 1.50 x10'3/uL 10/10/2024 6:43 AM [facility] PLT MORPH. NORMAL 10/10/2024 6:43 AM GREEN ENERGY MARKETING ANALYST [facility] RBC MORPHOLOGY 1+ 10/10/2024 6:43 AM GREEN ENERGY MARKETING ANALYST [facility] Comment:POIKILOCYTOSIS 10/10/2024 5:04 AM GREEN ENERGY MARKETING ANALYST us Shirin Waldron NP LABORATORY Final Result [facility] [employer] [place] [address], * (ABNORMAL) URINALYSIS (10/09/2024 2:37 PM GREEN ENERGY MARKETING ANALYST) COLOR (U) YELLOW 10/09/2024 3:01 PM [facility] TRANSPARENCY CLEAR 10/09/2024 3:01 PM [facility] SPECIFIC GRAVITY (U) 1.020 1.000 - 1.025 10/09/2024 3:01 PM [facility] U PH 5.5 5.0 - 8.0 10/09/2024 3:01 PM [facility] LEUKOCYTES (U) NEGATIVE NEGATIVE 10/09/2024 3:01 PM [facility] NITRITES POSITIVE(A) NEGATIVE 10/09/2024 3:01 PM [facility] PROTEIN RANDOM (U) 2+(A) NEGATIVE 10/09/2024 3:01 PM [facility] GLUCOSE (U) NEGATIVE NEGATIVE 10/09/2024 3:01 PM [facility] KETONES MG/DL (U) NEGATIVE NEGATIVE 10/09/2024 3:01 PM [facility] UROBILINOGEN 1.0(H) <1.0 EU/DL 10/09/2024 3:01 PM GREEN ENERGY MARKETING ANALYST [facility] BILIRUBIN (U) NEGATIVE NEGATIVE 10/09/2024 3:01 PM GREEN ENERGY MARKETING ANALYST [facility] BLOOD (U) 3+(A) NEGATIVE 10/09/2024 3:01 PM GREEN ENERGY MARKETING ANALYST [facility] WBC/HPF 0-5 0 - 5 /HPF 10/09/2024 3:01 PM GREEN ENERGY MARKETING ANALYST [facility] RBC/HPF FILLED FIELD(A) 0 - 5 /HPF 10/09/2024 3:01 PM GREEN ENERGY MARKETING ANALYST [facility] EPI/LPF 5-10 /LPF 10/09/2024 3:01 PM GREEN ENERGY MARKETING ANALYST [facility] BACTERIA (U) 2+ /HPF 10/09/2024 3:01 PM [facility] COMMENT (U) FIELD FILLED RED CELLS CRITICAL VALUE CALLED TO RAJNI MARTINEZ AT 1501 BY SUZETTE PRUETTER 10/09/2024 3:01 PM GREEN ENERGY MARKETING ANALYST [facility] URINE SPECIMEN OBTAINED BY CLEAN CATCH PROCEDURE / Unknown 10/09/2024 2:37 PM GREEN ENERGY MARKETING ANALYST us Boris Luciano DO URINE ORDERABLES Final Resul t Performing Organization Address City/[facility]/[place] [address], [place] [phone] * (ABNORMAL) AMYLASE (10/09/2024 1:27 PM GREEN ENERGY MARKETING ANALYST) AMYLASE S/P/B 23(L) 25 - 115 UNITS/L 10/09/2024 1:53 PM GREEN ENERGY MARKETING ANALYST [facility] 10/09/2024 1:27 PM GREEN ENERGY MARKETING ANALYST us Boris Luciano DO LABORATORY Final Result Performing Organization Address City/[facility]/ZIP Co de Phone Number [address] [address], [place] [phone] * (ABNORMAL) LIPASE (10/09/2024 1:27 PM GREEN ENERGY MARKETING ANALYST) LIPASE 12(L) 16 - 77 UNITS/L 10/09/2024 1:53 PM GREEN ENERGY MARKETING ANALYST [facility] 10/09/2024 1:27 PM GREEN ENERGY MARKETING ANALYST us Boris Luciano DO LABORATORY Final Result [facility] [address] [place] [address], * CT ABD+PEL KIDNEY STONE (10/09/2024 1:24 PM GREEN ENERGY MARKETING ANALYST) Anatomical Region Laterality Modality Abdomen Computed Tomogra phy 10/09/2024 1:36 PM GREEN ENERGY MARKETING ANALYST Impressions 10/09/2024 1:46 PM GREEN ENERGY MARKETING ANALYST IMPRESSION: 1. Perinephric stranding on the right raising the question of pyelonephritis. Clinical correlation required. 2. Otherwise, no acute intra-abdominal or intrapelvic process identified. 3. Moderate to large amount stool in the colon. 4. Additional chronic/nonurgent findings as described. Ordered By: BORIS LUCIANO Interpreted By: Ethan Greenberg MD, 10/09/2024 1:36 PM Narrative 10/09/2024 1:46 PM GREEN ENERGY MARKETING ANALYST [address] [place] [address] Examination: CT of the abdomen and pelvis [...] Procedure Note Ethan Greenberg MD - 10/09/[address] [place] [address] Examination: CT of the abdomen and pelvis [...] Final Result from Last 3 Months Insurance [employer] Advance Directives * Full Code (Latest Code Status on File) Date Activated Date Inactivated Comments 10/09/2024 5:05 PM 10/10/2024 2:00 PM Care Teams Probate Judge Relationship Specialty Start Date End Date Abner Velazquez MD [address] [place] [id number] PCP - General FAMILY PRACTICE 01/29/21
--- OUTSIDE RECORDS SUMMARY | 2024-12-31 12:05 | XMS_ITS | Continuity of Care Document ---
Author Organization [facility] Address [address] [place] [address] [place] [address] Phone Care Team Providers Care Demand Generator Manager Name Role Phone Adonis Hernandez MD Unavailable Unavailable Allergies, Adverse Reactions, Alerts Substance Reaction Status Criticality tramadol Active No Information Medications Medication Instructions Dosage Effective Dates (start - stop) Status Comments Lexapro 10 mg tablet take 1 tablet (10MG ) by oral route every day 10 MG - Active buspirone 7.5 mg tablet take 1 tablet (7.5MG) by oral route 2 times every day 7.5 MG - Active Procedures Procedure Date PREV VISIT, NEW, AGE 18-39 Advance Directives Directive Yes / No Effective Date File Name No Information Encounters Encounter Description Practice Location Reason(s) For Visit Diagnoses Date Provider Providers Copied on Encounter PREV VISIT, NEW, AGE 18-39 [facility], [address] [place], [place], [id number], [place] tel:[phone] [facility] PHysical (chief complaint) Routine Medical ExamRoutine Medical Exam David Lamb. [address] [facility] [place], [id number], [place]. tel:[phone] Family History Family Member Type Diagnosis Age At Onset Father Problem (finding) Unknown Disease Mother Problem (finding) Cancer -ovarian [place] 35 Payers Payer name Insurance type Covered libertarian ID Authoriza tion(s) No Information Social History [...] Mental Status Date Cognitive Assessment Orientation - Hawthorne ed to time, place, person, situation.
--- OUTSIDE RECORDS SUMMARY | 2024-12-31 12:05 | XMS_ITS | Clinical Summary ---
Author Organization [facility] Address [address] [place] [address] Phone Care Team Providers Care Fixed Route Bus Operator Name Role Phone Tulio Lara MD Unavailable [phone] Radha Valenzuela APRN Primary Care Provider [phone] Allergies Active Allergy Reactions Criticality Noted Date [...] Comments Blood Pressure 131/87 08/21/2024 1:02 AM AFTER SCHOOL PROGRAM TEACHER Pulse 86 08/21/2024 1:02 AM AFTER SCHOOL PROGRAM TEACHER Temperature 36.9 C (98.4 F) 08/21/2024 1:02 AM AFTER SCHOOL PROGRAM TEACHER Respiratory Rate 18 08/21/2024 1:02 AM AFTER SCHOOL PROGRAM TEACHER Oxygen Saturation 97% 08/21/2024 1:02 AM AFTER SCHOOL PROGRAM TEACHER Inhaled Oxygen Concentration - - Weight 61.2 kg (135 lb) 08/21/2024 1:02 AM AFTER SCHOOL PROGRAM TEACHER Height 170.2 cm (5' 7 ) 08/21/2024 1:02 AM AFTER SCHOOL PROGRAM TEACHER Body Mass Index 21.14 08/21/2024 1:02 AM AFTER SCHOOL PROGRAM TEACHER Plan of Treatment Health Maintenance Due Date [...] Pain in joint, multiple sites PATHOLOGY CYTOLOGY ASSISTANT CENTER DIRECTOR Routine 01/24/2017 10:39 AM CDT DUB (dysfunctional uterine bleeding) from Last 3 Months or Most Recently Relevant to Health Maintenance Results * HEPATITIS C ANTIBODY (05/18/2017 5:04 PM CDT) hepatitis C antibody 0.17 <1 S/CO 05/19/2017 2:[address] [facility] Comment: Signal/Cutoff ratio < 0.79 is Nondetected Signal/Cutoff ratio 0.80-0.99 is Grayzone Signal/Cutoff ratio > 0.99 is Detected Supplemental assays are recommended if signal/cutoff ratio is >/=1.00. Signal/cutoff ratio result >/= 5.00 is 97% predictive of positivity for recombinant immunoblot assay (RIBA) and will be reported to the [place] Department of Public Health as required. Blood specimen (specimen) Butterfly Puncture / Unknown 05/18/2017 5:04 PM CDT 05/18/2017 5:04 PM CDT us Kristi Huitron MD CHEMISTRY ORDERABLES Final Resul t [facility] [address] [place] [address], [place] * PATHOLOGY CYTOLOGY ASSISTANT CENTER DIRECTOR (01/24/2017 10:39 AM CDT) SPECIMEN ADEQUACY Satisfactory for evaluation. Endocervical cells present. 01/31/2017 9:47 AM CDT [facility] GENERAL CATEGORY EPITHELIAL CELL ABNORMALITY 01/31/2017 9:47 AM CDT [facility] DESCRIPTIVE DIAGNOSIS High grade squamous intraepithelial lesion present 01/31/2017 9:47 AM CDT [facility] at 0947 CDT RECOMMENDATION Colposcopy and/or biopsy suggested 01/31/2017 9:47 AM CDT [facility] AUTOMATED EXAMINATION Analysis of this sample has been assisted by an automated imaging and review system ([employer] System, [employer], [place], [place]). This case is further evaluated and finalized by a yarding engineer and/or pathologist. 01/31/2017 9:47 AM CDT [facility] DISCLAIMER The PAP smear is a screening [...] unless clinically indicated. 01/31/2017 9:47 AM CDT [facility] Case Report Gynecologic Cytology Report Case: [id number] Authorizing Provider: Tulio Lara MD Collected: 01/24/2017 10:39 AM Ordering Location: [facility] Received: 01/24/2017 10:08 PM [facility] First Screen: Dano Cowart Pathologist: Javan Manzano MD Specimen: Cervical/Endocervi norma, liquid based thin layer preparation (Thin Prep ), CERVIX/ENDOCERVIX 01/31/2017 9:[address] [facility] HPV Reflex if ASCUS? Yes 01/31/2017 9:[address] [facility] Specimen of unknown material (specimen) CERVIX UTERI STRUCTURE / Unknown 01/24/2017 10:39 AM CDT 01/24/2017 10:08 PM CDT us Tulio Lara MD PATHOLOGY/CYTOLOGY ORDERABLES Final Result Performing Organization Address City/State/[facility] Co de Phone Number [facility] [address] [place] [address], [place] from Last 3 Months or Most Recently Relevant to Health Maintenance Insurance MEDICAID [employer] Care Teams Fixed Route Bus Operator Relationship Specialty Start Date End Date Radha Valenzuela APRN [address] [place] [address] PCP - General Family Medicine 10/03/17 Tulio Lara MD [address] [place] [address] Consulting Physician Obstetrics & Gynecology 02/09/17
--- OUTSIDE RECORDS SUMMARY | 2024-12-31 12:06 | XMS_ITS | Continuity of Care Document ---
Author Organization [facility] Address [address] [place] [address] Phone Care Team Providers Care Lens Fabricating Machine Tender Name Role Phone Erik Bliss Unavailable Unavailable Medications Medication Instructions Dosage Effective Dates (start - stop) Status Comments albuterol sulfate HFA 90 mcg/actuation aerosol inhaler inhale 1 puff by inhalation route 3 times daily - Active Advance Directives Directive Yes / No Effective Date File Name No Information Encounters Encounter Description Practice Location Reason(s) For Visit Diagnoses Date Provider Providers Copied on Encounter [facility], [address] [place] [address], [address], tel:[phone] [facility] [place] [facility] [place] NOT SEEN (chief complaint)D ONT TAKE HER INSURANCE (chief complaint) No Information Izaiah Erik. [address] [place], [address]. tel: [phone] Family History Family Member Type Diagnosis Age At Onset Problem (finding) Family history of Cance r, unknown Problem (finding) Family history of asthm a Payers Payer name Insurance type Covered democrat ID Authoriza tijared(s) [id number] Social History Type Description Quantity Date Captured [...]
[2024-12-31 12:26] LABS: Amphetamine Screen Urine Positive (Negative); Barbiturate Screen Urine Negative (Negative); Benzodiazepines Screen Urine Negative (Negative); Cannabinoid Screen Urine Positive (Negative); Cocaine Screen Urine Negative (Negative); Methadone Screen Urine Negative (Negative); Opiate Screen Urine Negative (Negative); Phencyclidine Screen Urine Negative (Negative)
--- NOTE | 2025-01-03 13:43 | PC.NURSE ---
final urine culture report reviewed. >100,000 E.coli isolated. report shows sensitivity to cipro. pt prescribed cipro at discharge. no change in plan of care.
== END 2024-12-31 13:48 | disposition home or self-care (01) ==
PROVIDERS: Emergency Provider Internal Medicine Critical Care Medicine; PCP Family Medicine
DX: N30.00 Acute cystitis without hematuria (principal); F15.10 Other stimulant abuse, uncomplicated; F11.10 Opioid abuse, uncomplicated; J44.9 Chronic obstructive pulmonary disease, unspecified; M79.7 Fibromyalgia; F17.210 Nicotine dependence, cigarettes, uncomplicated; Z79.899 Other long term (current) drug therapy
CPT/HCPCS: 36415; 70450; 80053; 80307; 81001; 82550; 83605; 84484; 85025; 85610; 87086; 87186; 93005; 99284